=== PATIENT | female | born 1955 | race Caucasian/White ===

== ENCOUNTER 2020-01-02 14:00 | Outpatient (RCR) | payer OTHER, SELFPAY ==
--- NOTE | 2020-01-03 08:09 | MHC.OT.DC ---
[address] [phone] F: [phone] Occupational Therapy Discharge Note Provider: Renetta Ham Diagnosis: R TRIGGER FINGER Date of Evaluation: 11/02/19 Date of Discharge: 01/02/20 Treatments to Date: 14 Discharge Status: Achieved Goals Improved Function Independent with HEP Recommend MD Follow-up Discharge Summary: RECOMMEND TRANSITION TO A HOME BASED PROGRAM AT THIS TIME. MS. BUNDY CONT TO REPORT NO PAIN AND DEMO GOOD FOLLOW THROUGH WITH HEP. NO FURTHER LOCKING OF RIGHT D3, YET CONT TO HAVE TIGHT INTRINSIC MS. Pt HAS REACHED MAXIMUM FUNCTIONAL LEVEL IN OUTPATIENT OT AND RECOMMEND ONGOING THER EX, STRETCHING, MASSAGING, KINESIOTAPING, AND USE OF HEAT/ICE. MAY NEED TO BE REFERRED BACK TO MD FOR F/U. Electronically Signed By: Paula RUFFED, OTR/L Please Sign and return to therapist, thank you for your referral.
== END 2020-01-03 08:25 | disposition home or self-care (01) ==
LOC: HO.OT 14:00
PROVIDERS: PCP Hospitalist; Visit Provider Hospitalist
DX: M65.30 Trigger finger, unspecified finger (principal)
CPT/HCPCS: 97035; 97110; 97140

== ENCOUNTER 2020-01-30 13:07 | Outpatient (REF) | payer OTHER, SELFPAY ==
[2020-02-01 20:16] LABS: HPV mRNA E6/E7 rflx Not Detected (Not Detected)
== END 2020-01-30 13:08 | disposition home or self-care (01) ==
LOC: HO.LAB 13:07
PROVIDERS: Visit Provider Advanced Practice Midwife
DX: Z01.419 Encounter for gynecological examination (general) (routine) without abnormal findings (principal); Z11.51 Encounter for screening for human papillomavirus (HPV); Z78.0 Asymptomatic menopausal state
CPT/HCPCS: 87480; 87510; 87624; 87625; 87660; 88142

== ENCOUNTER → 2021-01-31 13:19 | Outpatient (BNVA) | payer OTHER, SELFPAY | PROVIDERS: Visit Provider Advanced Practice Midwife ==

== ENCOUNTER 2021-03-04 14:18 | Outpatient (REF) | payer OTHER, SELFPAY ==
--- NOTE | ~2021-03-04 | MM_ITS ---
EXAMINATION: MM SCREENING DIGITAL BREAST TOMOSYNTHESIS, BILATERAL CLINICAL INFORMATION: Screening. Asymptomatic. The lifetime risk of breast cancer based on the Tyrer-Cuzick Model is 9%. COMPARISON: Mammography: 11/13/2019, 03/20/2019; outside mammography 07/19/2018 and 11/13/2016 ([place]). TECHNIQUE: Digital breast tomosynthesis is performed in both the craniocaudal and mediolateral oblique views along with computer-aided detection (CAD). Synthesized 2D images are generated from the tomosynthesis. FINDINGS: There are scattered areas of fibroglandular density (ACR BI-RADS breast composition Category b). There are no significant masses, abnormal calcifications, or other abnormalities. Parenchymal pattern is similar to prior studies. There is no developing density or architectural abnormality. The axilla and skin contours are unremarkable. No significant changes. MM/MM tomosynthesis screening BI IMPRESSION: No mammographic evidence of malignancy. ASSESSMENT: BI-RADS 1: Negative RECOMMENDATION: Routine annual mammography screening. This patient's information was entered into a reminder system with a target due date for their next mammogram.
== END 2021-03-04 14:19 | disposition home or self-care (01) ==
LOC: HO.MAMMO 14:18
PROVIDERS: PCP Hospitalist; Visit Provider Advanced Practice Midwife
DX: Z12.31 Encounter for screening mammogram for malignant neoplasm of breast (principal)
CPT/HCPCS: 77063; 77067

== ENCOUNTER → 2021-11-18 11:28 | Outpatient (BNVA) | payer OTHER, SELFPAY | PROVIDERS: PCP Hospitalist; Visit Provider Orthopaedic Surgery | DX: M65.341 Trigger finger, right ring finger (principal) | CPT/HCPCS: 99202 ==

== ENCOUNTER 2021-12-04 11:32 | Day surgery (SDC) | payer OTHER, SELFPAY ==
[2021-12-04 14:59] VITALS: BP 159/72; PULSE 75; RESP 20; TEMP 36.7
--- NOTE | 2021-12-04 15:32 | MHC.SHP ---
Pre-Procedural Eval Section A Date of Service: 12/04/21 The patient is an INPATIENT: No Changes since office visit: No Cold of Flu in the past 2 weeks, No New Medical Problems, No Changes in Medication and No Patient answered all questions The History & Physical has been completed within 30 days and I have reviewed it.: Yes Section B Chief Complaint: trigger finger Allergies: Allergies Allergy/AdvReac Type Severity Reaction Status Date / Time rabies vaccine, human Allergy Unknown sick Verified 10/15/21 13:42 diploid cell duck embryo Allergy Unknown makes her Uncoded 04/16/21 12:56 sick Plan I have reviewed the history and physical and performed a pertinent physical examination on my patient. No changes have occurred unless specified.
--- NOTE | 2021-12-04 15:32 | W.PM.OPN ---
Operative Note Operative Note Date of Service: 12/04/21 Narrative: Operative Note Preop diagnosis: 1. Right ring finger Trigger finger Postop diagnosis: 1. right ring finger Trigger finger Procedure: 1. right ring finger A1 eloy release Surgeon: Sujey Arroyo MD Anesthesia: local block using 1% lidocaine with epinephrine Findings: No locking or catching after A1 eloy release EBL: Less than 5 mL Tourniquet time: None Specimens: None Complications: None Disposition: Brought to recovery room in stable condition Plan: Follow-up for 10-14 days for wound check and suture removal Indications: The patient is 66 years old, with a right ring finger trigger finger that has been unresponsive to nonoperative management. The risks and benefits of operative treatment including but not limited to risk of damage to blood vessels, nerves, tendons, infection, persistent pain, persistent symptoms, recurrence or possible need for additional surgery were discussed with the patient and the patient wishes to proceed with surgery. Procedure: Once consent was obtained a local block was performed in the preop area using a combination of 1% lidocaine with epinephrine. The patient was then brought back to the operating suite and placed on the operative table in supine position. A tourniquet was applied to the proximal aspect of the right upper extremity and the limb was prepped and draped in a standard surgical fashion. Once assured that we had a good block, a 1.5 cm oblique incision was made centered over the A1 eloy of the right ring finger finger . The incision was made through the skin to the subcutaneous tissues using a #15 blade. Careful dissection was made down to the level of the A1 eloy using tenotomy scissors, with care being taken to protect the nearby neurovascular structures. A longitudinal incision was made in the A1 eloy 1st using a #15 blade, then using tenotomy scissors under direct visualization. The A1 eloy was noted to be thickened. Following our A1 eloy release, we no longer saw any locking or catching of the digit with flexion and extension. Once satisfied with our A1 eloy release the wound was copiously irrigated with normal saline and hemostasis was obtained with a brief period of local pressure. The skin edges were reapproximated with some 5.0 nylon suture material and a sterile dressing was applied. The patient appears to have tolerated the procedure well and with no complications. All digits were well vascularized at the conclusion of the case.
== END 2021-12-04 15:35 | disposition home or self-care (01) ==
PROVIDERS: PCP Hospitalist; Visit Provider Orthopaedic Surgery
PROC: (CPT 26055; principal; 2021-12-04 15:30)
DX: M65.341 Trigger finger, right ring finger (principal); I10 Essential (primary) hypertension; G47.33 Obstructive sleep apnea (adult) (pediatric); Z99.89 Dependence on other enabling machines and devices; Z88.7 Allergy status to serum and vaccine; Z87.891 Personal history of nicotine dependence
CPT/HCPCS: 26055; J0171

== ENCOUNTER 2021-12-29 14:47 | Outpatient (REF) | payer OTHER, SELFPAY | END 2021-12-29 14:48 | disposition home or self-care (01) | LOC: HO.SH 14:47 | PROVIDERS: Visit Provider Hospitalist | DX: Z01.118 Encounter for examination of ears and hearing with other abnormal findings (principal); H90.42 Sensorineural hearing loss, unilateral, left ear, with unrestricted hearing on the contralateral side | CPT/HCPCS: 92557; 92567 ==

== ENCOUNTER 2022-03-10 13:53 | Outpatient (REF) | payer OTHER, SELFPAY ==
--- NOTE | ~2022-03-10 | MM_ITS ---
EXAMINATION: MM SCREENING DIGITAL BREAST TOMOSYNTHESIS, BILATERAL CLINICAL INFORMATION: Screening. Asymptomatic. The lifetime risk of breast cancer based on the Tyrer-Cuzick Model is 8%. COMPARISON: Mammography: March 04, 2021 and studies dating back to April 25, 2014 TECHNIQUE: Digital breast tomosynthesis is performed in both the craniocaudal and mediolateral oblique views along with computer-aided detection (CAD). Synthesized 2D images are generated from the tomosynthesis. FINDINGS: There are scattered areas of fibroglandular density (ACR BI-RADS breast composition Category b). There are no significant masses, abnormal calcifications, or other abnormalities. MM/MM tomosynthesis screening BI IMPRESSION: No significant changes from prior exam. ASSESSMENT: BI-RADS 1: Negative RECOMMENDATION: Routine annual mammography screening. This patient's information was entered into a reminder system with a target due date for their next mammogram.
== END 2022-03-10 13:54 | disposition home or self-care (01) ==
LOC: HO.MAMMO 13:53
PROVIDERS: Visit Provider Hospitalist
DX: Z12.31 Encounter for screening mammogram for malignant neoplasm of breast (principal)
CPT/HCPCS: 77063; 77067

== ENCOUNTER → 2022-04-02 15:12 | Outpatient (BNVA) | payer OTHER, SELFPAY | PROVIDERS: PCP Hospitalist; Visit Provider Advanced Practice Midwife | DX: Z13.89 Encounter for screening for other disorder (principal) ==

== ENCOUNTER 2022-10-12 14:56 | Outpatient (REF) | payer OTHER, SELFPAY ==
[2022-10-12 15:40] LABS: Hematocrit 44.2 % (37.0-47.0); Hemoglobin 14.5 g/dl (12.0-16.0); Mean Corpuscular HGB Conc 32.8 g/dl (31.0-35.0); Mean Corpuscular Hemoglobin 28.4 pg (27.0-33.0); Mean Corpuscular Volume 86.7 fL (80.0-98.0); Mean Platelet Volume 9.6 fL (9.4-12.3); Platelet Count 290 X10*3/uL (160-400); Red Cell Distribution Width 13.2 % (11.0-16.0); White Blood Count 6.4 X10*3/uL (4.8-10.8)
[2022-10-12 16:59] LABS: Alanine Aminotransferase 42 U/L (0-31); Albumin Level 4.2 g/dL (3.5-5.0); Alkaline Phosphatase 64 U/L (39-117); Anion Gap 15 (12-20); Aspartate Amino Transferase 20 U/L (5-31); Bilirubin Total 0.6 mg/dL (0.0-1.0); Blood Urea Nitrogen 12 mg/dL (9-16); Calcium 9.5 mg/dL (8.4-10.2); Carbon Dioxide 22 mmol/L (22-29); Chloride 104 mmol/L (96-108); Cholesterol 202 mg/dL; Estimated Glomerular Filt Rate > 60; Glucose Fasting 327 mg/dL (60-99); HDL Cholesterol 49 mg/dL; LDL Cholesterol Calculated 126 mg/dl; Potassium 4.2 mmol/L (3.3-5.1); Sodium 137 mmol/L (135-145); Total Protein 7.3 g/dL (6.5-8.0); Triglycerides 139 mg/dL
[2022-10-12 17:03] LABS: Ferritin 191 ng/mL (10-250); TSH reflex Free T4 0.67 uIU/mL (0.32-4.0)
[2022-10-17 13:03] LABS: Vitamin D 25-OH, D2 <4 ng/mL; Vitamin D 25-OH, D3 12 ng/mL; Vitamin D 25-OH, Total 12 ng/mL (30-100)
== END 2022-10-12 14:57 | disposition home or self-care (01) ==
LOC: HO.LAB 14:56
PROVIDERS: PCP Hospitalist; Visit Provider Hospitalist
DX: Z00.00 Encounter for general adult medical examination without abnormal findings (principal); E66.01 Morbid (severe) obesity due to excess calories; L65.9 Nonscarring hair loss, unspecified; I10 Essential (primary) hypertension
CPT/HCPCS: 36415; 80053; 80061; 82306; 82728; 84443; 85027

== ENCOUNTER 2023-03-23 13:54 | Outpatient (REF) | payer MEDICARE, SELFPAY | END 2023-03-23 13:55 | disposition home or self-care (01) | LOC: HO.MAMMO 13:54 | PROVIDERS: PCP Internal Medicine; Visit Provider Internal Medicine | DX: Z12.31 Encounter for screening mammogram for malignant neoplasm of breast (principal) | CPT/HCPCS: 77063; 77067 ==

== ENCOUNTER → 2023-03-23 14:00 | Outpatient (BNV) | payer MEDICARE, SELFPAY | PROVIDERS: PCP Internal Medicine; Visit Provider Radiology Diagnostic Radiology | DX: Z12.31 Encounter for screening mammogram for malignant neoplasm of breast (principal) | CPT/HCPCS: 77063; 77067 ==

== ENCOUNTER 2023-04-07 12:57 | Outpatient (AMB) | payer MEDICARE, SELFPAY ==
--- NOTE | 2023-04-07 13:04 | A.OFFVIS_ITS ---
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 She is doing well with no concerns. Attempting to eat a healthy diet with calcium and vitamin D. Currently not sexually active. Denies any vaginal irritation. Last pap smear; 2019. Last mammogram; 2022. Colonoscopy is not done yet. Denies any family history of breast, ovarian or colon cancer. [facility] Medical History BMI 40.0-44.9, adult SHALONDA on CPAP Hx of obesity Hypertension Surgical History History of surgery on arm S/P trigger finger release Hx of tonsillectomy Family History Family/Other No problems noted. Social History Housing: House Alcohol intake: current Patient Tobacco Use Status: Former Tobacco user e-Cigarette/Vaping Use: Never Used Current occupational status: employed Cognitive needs: No Hearing needs: Yes Vision needs: Yes Female Reproductive History Menstrual Age of Menarche: 16 Total pregnancies: 3 Full term: 1 Number of Living Children: 1 Date of last pap smear: 01/30/20 (neg pap and hpv) Date of Mammogram: 03/23/23 Review of Systems Const All systems reviewed & are unremarkable except as noted in HPI and below Reports as per HPI Eyes Reports no additional complaints ENT Reports no additional complaints Card Reports no additional complaints Resp Reports no additional complaints GI Reports as per HPI and Reports no additional complaints Reports as per HPI Musc Reports no additional complaints Skin/Breast Reports as per HPI Neuro Reports no additional complaints Psych Reports no additional complaints Endo Reports no additional complaints Pratik/Lymph Reports no additional complaints Aller/Immun Reports no additional complaints Physical Exam Vital Signs: BMI result Body Mass Index 39.0 Const General: cooperative, healthy appearing, no acute distress, well developed and alert Orientation/consciousness: patient oriented x3 HEENT Head: Yes normal to inspection Eyes General: appearance normal, both eyes and all related structures Neck Neck: Yes normal visual inspection Thyroid: Thyroid normal Chest Chest palpation & inspection: normal inspection of the chest and other (no puckering, dimpling, peau de orange, retraction, discharge, masses) Breast/axilla inspection: normal inspection of the breasts Breast/axilla palpation: normal palpation of the breasts Resp Effort & Inspection: normal respiratory effort GI Inspection: Yes normal to inspection Palpation (GI): Soft to palpation Rectal Exam - Female: deferred General: Yes bladder normal to palpation External Female Exam: normal external appearance and normal appearance of the urethra Speculum Exam - Vagina: normal appearance of the vagina, normal palpation, normal vaginal discharge and vagina atrophic Speculum Exam - Cervix: normal appearance of the cervix and normal palpation Bimanual exam- vagina & uterus: normal bimanual exam, normal palpation, uterine size normal, bladder normal to palpation, normal palpation and non-tender Bimanual Exam- Adnexa, other: no masses Skin General skin exam: no rashes or lesions noted Rashes: no rashes Neuro General: patient oriented x3 Cognition (Neuro): normal cognition Extrem General: Yes normal to inspection Psych Attitude: cooperative Thought process: Normal thought process present Assessment & Plan Assessment & Plan (1) Well woman exam with routine gynecological exam: Code(s): Z01.419 - Encounter for gynecological examination (general) (routine) without abnormal findings Plan: Discussed: Current recommendations for pap smears per ASCCP guidelines. Breast awareness, periodic self breast exams and yearly mammogram. Maintain a healthy lifestyle, well balanced diet including Calcium 1,200 mg and Vitamin D 600 IU daily, and routine exercise. Contact the office with any postmenopausal bleeding. All of her questions and concerns were addressed to the best of my ability. RTO in 1 year for annual entry level machine operator exam. This note is constructed using voice recognition software. While every effort has been made to ensure accuracy, flask handler errors may have been included. Coding Level of Care Code Est Pt Prev Care >65y(52157) Diagnoses Well woman exam with routine gynecological exam Z01.419
[2023-04-07 13:06] VITALS: BP 124/76; BMI 39.0
== END 2023-04-07 13:57 | disposition home or self-care (01) ==
LOC: HO.HWS 12:57
PROVIDERS: PCP Internal Medicine; Visit Provider Advanced Practice Midwife
DX: Z01.419 Encounter for gynecological examination (general) (routine) without abnormal findings (principal)
CPT/HCPCS: G0101

== ENCOUNTER → 2023-04-07 12:57 | Outpatient (BNVA) | payer MEDICARE, SELFPAY | PROVIDERS: PCP Internal Medicine; Visit Provider Advanced Practice Midwife | DX: Z01.419 Encounter for gynecological examination (general) (routine) without abnormal findings (principal) | CPT/HCPCS: G0101 ==

== ENCOUNTER 2023-06-22 16:37 | Outpatient (AMB) | payer MEDICARE, SELFPAY ==
[2023-06-22 16:56] VITALS: BP 152/90; BMI 40.2
--- NOTE | 2023-06-22 16:56 | A.OFFPC_ITS ---
Vital Signs 06/22/23 16:56 Height 5 ft 7 in Weight 257 lb BMI 40.2 BP 152/90 H Blood Pressure Location Lt brachial Position Sitting Intake Visit Reasons: Transfer of care Intake Note: Transfer of care from Renetta Ham Housekeeping Aide Required: No Accompanied by: Self / Same As Patient Allergies rabies vaccine, human diploid cell Allergy (Unknown, Verified 06/22/23 17:02) sick duck embryo Allergy (Unknown, Uncoded 06/22/23 17:02) makes her sick Medication List - Last Reconciled 06/22/23 by Niharika Serrano MD alprazolam 0.25 mg PO DAILY PRN metformin 500 mg PO BID 90 days minoxidil 5 mg PO DAILY valsartan-hydrochlorothiazide 160-12.5 mg 1 tab PO DAILY 90 days Tobacco use date assessed: 06/22/23 Fall risk assessment: No Falls in past year Last assessed Fall Risk: 06/22/23 Dental Screening Dental Screen Date: 06/22/23 Did you have a dental visit in the last 12 months?: Yes Did you have a dental problem in the last 6 months where you did not have access to dental care?: No Was dental information given to patient?: Patient has dentist HPI HPI Comments History of Present Illness Details This is a 67-year-old female with morbid obesity, hypertension, obstructive sleep apnea on CPAP and new onset diabetes mellitus type 2 that comes today to establish care. She is morbidly obese with a BMI of 40.3 and was advised to consider weight management. Blood pressure elevated today and will be recheck in 3 weeks by nurse navigator. She has obstructive sleep apnea and is compliant with her CPAP machine and her CPAP machine benefits her feeling more rested. Last random blood glucose was 327 and her A1c today is 8% and I will start home metformin. Patient was advised that metformin can cause abdominal discomfort and diarrhea. Last cholesterol was elevated and she will repeat it. She has no risk factors for colon cancer and is willing to do Cologuard. [facility] Medical History (Updated 06/22/23 @ 20:15 by Niharika Serrano MD) BMI 40.0-44.9, adult SHALONDA on CPAP Hx of obesity Hypertension Surgical History History of surgery on arm S/P trigger finger release Hx of tonsillectomy Family History Family/Other No problems noted. Social History Housing: House Alcohol intake: former Patient Tobacco Use Status: Former Tobacco user Tobacco use type: Cigarette e-Cigarette/Vaping Use: Never Used Second Hand Smoke Exposure: No service: No Current occupational status: employed Current occupational exposures/hazards: No Cognitive needs: No Hearing needs: Yes Vision needs: Yes Female Reproductive History Menstrual Age of Menarche: 16 Questionnaire PHQ-9 Over the last 2 weeks, how often have you been bothered by any of the following problems? 1. Little interest or pleasure in doing things: not at all 2. Feeling down, depressed, or hopeless: not at all 3. Trouble falling or staying asleep, or sleeping too much: not at all 4. Feeling tired or having little energy: not at all 5. Poor appetite or overeating: not at all 6. Feeling bad about yourself - or that you are a failure or have let yourself or your family down: not at all 7. Trouble concentrating on things, such as reading the newspaper or watching television: not at all 8. Moving or speaking so slowly that other people could have noticed. Or the opposite - being so fidgety or restless that you have been moving around a lot more than usual: not at all 9. Thoughts that you would be better off or of hurting yourself in some way: not at all Total score: 0 Depression Screening Interpretation: Negative Depression Screening Done: Yes 39537 - PHQ-9 Billing: Yes Source: Developed by Drs. Jimmy Mendieta, Mackenzie Root, Alex Ford and colleagues, with an educational jerzy from [employer]. Thrive Questionnaire Date Thrive assessed: 06/22/23 I am a: Patient What is your living situation today?: I have a steady place to live Within the past 12 months, did the food you bought not last and you didn't have the money to get more?: Never true Within the past 12 months, did you worry whether your food would run out before you got money to buy more?: Never true Do you have trouble paying for medicines?: No Do you have trouble getting transportation to medical appointments?: No Do you have trouble paying your heating and electricity bill?: No Do you have trouble taking care of your child, family member or friend?: No Do you have trouble with day-to-day activities such as bathing, preparing meals, shopping, managing finances, etc.?: No Are you currently unemployed and looking for a job?: No Are you interested in more education?: No Please select the resources that you would like help with: None Currently or been in a relationship where the following occur: no concerns reported THRIVE Score: 0 AUDIT C Alcohol Use Questionnaire (AUDIT-C) 1. How often do you have a drink containing alcohol?: Never Total Score: 0 NORRIS-7 AMB Questionnaire NORRIS-7 Date NORRIS - 7 assessed: 06/22/23 Feeling nervous, anxious, or on edge: 0 = Not at all Not being able to stop or control worryin = Not at all Worrying too much about different things: 0 = Not at all Trouble relaxin = Not at all Being so restless that it is hard to sit still: 0 = Not at all Becoming easily annoyed or irritable: 0 = Not at all Feeling afraid as if something awful might happen: 0 = Not at all Total NORRIS-7 score (0-4 normal; 5-9 mild; 10-14 moderate; 15-21 severe): 0 Source: Developed by Drs. Jimmy Mendieta, Mackenzie Root, Alex Ford and colleagues, with an educational jerzy from [employer]. NORRIS-7 Assessment Billing NORRIS-7 Assessment Tool: NORRIS-7 Assessment 27116 Review of Systems Const All systems reviewed & are unremarkable except as noted in HPI and below Eyes Reports no additional complaints, Denies change in vision and Denies other visual disturbances Card Denies chest pain at rest, Denies chest pain with activity, Denies edema, Denies irregular heart rhythm, Denies claudication, Denies dyspnea, Denies dyspnea on exertion, Denies orthopnea, Denies paroxysmal nocturnal dyspnea and Denies slow heart rate Resp Denies cough, Denies dyspnea and Denies dyspnea on exertion GI Denies abdominal pain, Denies change in bowel habits, Denies excessive flatus, Denies nausea and Denies vomiting Denies urinary incontinence, Denies urinary hesitancy and Denies urinary urgency Physical exam (Primary Care) Vital Signs: Last Vital Signs BP 152/90 H 06/22/23 16:56 BMI result Body Mass Index 40.2 Tobacco/Smoking Status: Tobacco use Status Tobacco use date assessed 06/22/23 06/22/23 17:00 Patient Tobacco Use Status Former Tobacco user 06/22/23 17:00 Tobacco use type Cigarette 06/22/23 17:00 e-Cigarette/Vaping Use Never Used 06/22/23 17:00 PHQ-9: PHQ-9 Score PHQ-9: Total score 0 06/22/23 17:40 Depression Screening Interpretation: Negative Thrive Assessment: Date of Thrive Assessment Date Thrive assessed 06/22/23 06/22/23 17:00 Currently or been in a relationship where the following occur: no concerns reported Resp Effort & Inspection: normal respiratory effort Auscultation: clear to auscultation bilaterally Cardio Jugular venous distension: no JVD Rate: regular rate Rhythm: regular rhythm Heart sounds: S1 normal heart sound present and S2 normal heart sound present Extrem General: Yes full ROM Results AMB Hemoglobin A1c AMB Hemoglobin A1c 8.0 % Last Edit by ROSALES Berman on 06/22/23 17:4 0 Results Reviewed Results Reviewed: Laboratory Last Values Hgb A1c (Clinic) 8.0 % (4.0-6.0) H 06/22/23 17:39 Assessment and Plan Assessment & Plan (1) Morbid obesity: Code(s): E66.01 - Morbid (severe) obesity due to excess calories Plan: Consider weight loss surgery. BMI goal is less than 30. (2) Diabetes mellitus: Code(s): E11.9 - Type 2 diabetes mellitus without complications Plan: Start metformin. Measure fasting blood glucose daily. A1c goal is equal or less than 7%. (3) SHALONDA on CPAP: Code(s): G47.33 - Obstructive sleep apnea (adult) (pediatric); Z99.89 - Dependence on other enabling machines and devices Plan: Continue CPAP machine. (4) Hypertension: Code(s): I10 - Essential (primary) hypertension Qualifiers: Hypertension type: essential hypertension Qualified Code(s): I10 - Essential (primary) hypertension Plan: Continue valsartan-hydrochlorothiazide. Blood pressure goal is equal or less than 130/80. Recheck blood pressure with nurse navigator in 3 weeks. Orders: Orders Lipid Panel Today E11.9 - Type 2 diabetes mellitus without complications, E78.5 - Hyperlipidemia, unspecified Comprehensive [place]. Panel Fast Today E11.9 - Type 2 diabetes mellitus without complications Thyroid Stimulating Hormone Today L65.9 - Nonscarring hair loss, unspecified AMB Hemoglobin A1c Today E11.9 - Type 2 diabetes mellitus without complications Microalbumin, Random (w Creat) Today E11.9 - Type 2 diabetes mellitus without complications Medications: New blood sugar diagnostic (OneTouch Ultra Test strips) Use 1 test strip once a day 100 ea 3RF E11.9 - Type 2 diabetes mellitus without complications lancets ([employer] InternationalTouch UltraSoft 2 Lancet) Use 1 lancet once a day 100 ea 3RF E11.9 - Type 2 diabetes mellitus without complications CPAP As directed 1 ea 0RF G47.33 - Obstructive sleep apnea (adult) (pediatric), Z99.89 - Dependence on other enabling machines and devices metformin 500 mg PO BID 180 tabs 0RF 90 days E11.9 - Type 2 diabetes mellitus without complications blood-glucose meter (OneTouch Ultra2 Meter) As directed 1 ea 0RF E11.9 - Type 2 diabetes mellitus without complications Coding Level of Care Code Est Pt Level 4 (02920) Diagnoses Morbid obesity E66.01 Diabetes mellitus E11.9 SHALONDA on CPAP G47.33; Z99.89 Essential hypertension I10 Hypertension type: essential hypertension Additional Codes NORRIS-7 Assessment Billing - NORRIS-7 Assessment Tool: NORRIS-7 Assessment 95173 ([id number]) Time Spent (min) 26
== END 2023-06-22 17:32 | disposition home or self-care (01) ==
PROVIDERS: PCP Internal Medicine; Visit Provider Internal Medicine
DX: E11.9 Type 2 diabetes mellitus without complications (principal); E66.01 Morbid (severe) obesity due to excess calories; Z68.41 Body mass index [BMI] 40.0-44.9, adult; G47.33 Obstructive sleep apnea (adult) (pediatric); Z99.89 Dependence on other enabling machines and devices; I10 Essential (primary) hypertension
CPT/HCPCS: 83036; 99214

== ENCOUNTER → 2023-07-19 14:50 | Outpatient (REF) | payer MEDICARE, SELFPAY | LOC: HO.SL 14:50 | PROVIDERS: PCP Internal Medicine; Visit Provider Internal Medicine | DX: G47.33 Obstructive sleep apnea (adult) (pediatric) (principal); Z99.89 Dependence on other enabling machines and devices | CPT/HCPCS: 95806 ==

== ENCOUNTER → 2023-07-19 15:08 | Outpatient (BNV) | payer MEDICARE, SELFPAY | PROVIDERS: PCP Internal Medicine; Visit Provider Internal Medicine | DX: G47.33 Obstructive sleep apnea (adult) (pediatric) (principal) | CPT/HCPCS: 95806 ==

== ENCOUNTER 2023-07-21 11:26 | Outpatient (AMB) | payer MEDICARE, SELFPAY ==
[2023-07-21 11:44] VITALS: BMI 39.2
--- NOTE | 2023-07-21 11:44 | A.OFFVIS_ITS ---
VS Expanded 07/21/23 11:44 07/28/23 10:27 Height 5 ft 7 in 5 ft 7 in Weight 250 lb 7.122 oz 250 lb BMI 39.2 39.2 Intake Visit Reasons: T2DM, Obesity/ CONFIRMED Allergies rabies vaccine, human diploid cell Allergy (Unknown, Verified 06/22/23 17:02) sick duck embryo Allergy (Unknown, Uncoded 06/22/23 17:02) makes her sick Nutrition Presentation Details: Pt presents for MNT for newly dx t2dm with obesity. Pt was referred by PCP Dr. Martin MOFFETT Monitoring Most Recent Diabetes Results: Cholesterol 202 mg/dL 10/12/22 HDL Cholesterol 49 mg/dL 10/12/22 Triglycerides 139 mg/dL 10/12/22 Creatinine 0.77 mg/dL (0.5-1.4) 10/12/22 Blood Urea Nitrogen 12 mg/dL (9-16) 10/12/22 Sodium 137 mmol/L (135-145) 10/12/22 Potassium 4.2 mmol/L (3.3-5.1) 10/12/22 Chloride 104 mmol/L (96-108) 10/12/22 Carbon Dioxide 22 mmol/L (22-29) 10/12/22 Calcium 9.5 mg/dL (8.4-10.2) 10/12/22 AST 20 U/L (5-31) 10/12/22 ALT 42 U/L (0-31) H 10/12/22 Total Protein 7.3 g/dL (6.5-8.0) 10/12/22 Albumin 4.2 g/dL (3.5-5.0) 10/12/22 YRK-Bcbegsm-Co.Jeor Equation Height: 5 ft 7 in Weight: 250 lb Resting Metabolic Rate: 1715.67 Calculated Activity Level: Sedentary Calories Needed to Maintain Weight: 2058.80 Diagnosis Nutrition problem #1: food nutri know defi As related to (etiology) #1: diagnosis As evidenced by (sign/symptom) #1: knowledge deficit of diet Monitoring/Goals Nutrition problem monitoring: level of knowledge/skill Nutrition goal/outcome: list 3 CHO foods and list 3 high fiber foods Outcome progress: verbalized understanding Learning/Education Readiness to learn: good [facility] Medical History (Updated 06/22/23 @ 20:15 by Niharika Serrano MD) BMI 40.0-44.9, adult SHALONDA on CPAP Hx of obesity Hypertension Surgical History History of surgery on arm S/P trigger finger release Hx of tonsillectomy Family History Family/Other No problems noted. Social History Housing: House Alcohol intake: former Patient Tobacco Use Status: Former Tobacco user Tobacco use type: Cigarette e-Cigarette/Vaping Use: Never Used Second Hand Smoke Exposure: No service: No Current occupational status: employed Current occupational exposures/hazards: No Cognitive needs: No Hearing needs: Yes Vision needs: Yes Female Reproductive History Menstrual Age of Menarche: 16 Assessment & Plan Assessment & Plan (1) Diabetes mellitus: Code(s): E11.9 - Type 2 diabetes mellitus without complications Category: Medical Plan: Wt: 114 Kg ( 07/2023 ) Est kcal needs as per MSJ: 2100 (40% carb, 30% protein/fat) Est fluid needs as per 25-30 ml/d: 3400 Est prot per day as per 1 g/kg bw: 114 Recommend fiber intake : 8-10 g per day and gradually increase to 25-28 g per day for women and 35-38 g for men or as tolerated Recommend sodium intake per day : less than 2000 mg Educated patient on: ( R = reviewed V = verbalizes understanding N/R = needs review N/A = not applicable * Food sources of carbohydrate, adequate serving sizes and its role in various health conditions: R * Differences between complex carbohydrates a simple carbohydrates, role of fiber in diet: R V N/R * Lean protein sources of foods: R * Differences between types of fats and role in diet (mono on saturated fat fatty acids, saturated fatty acids, trans fats): R V N/R * Food sources of sodium in salt and healthy modifications for heart health in kidney health: R V R/V * Vitamins and minerals: R V N/R * Healthy plate method concept: R * Physical activity: Benefits a precaution: R V N/R * Hypoglycemia protocol (rule of 15): R V N/R * Dietary prevention of Hyperglycemia: R Patient Instructions: Work on reducing total carb to less than 60 g at meal following healthy plate method see meal plan ideas monitor your blood sugar fasting and 2 hours after a meal, bring to your next follow up for review Coding Level of Care Code Nutr Indiv Intake (19690) Diagnoses Diabetes mellitus E11.9 Time Spent (min) 30
[2023-07-28 10:27] VITALS: BMI 39.2
== END 2023-07-21 12:21 | disposition home or self-care (01) ==
PROVIDERS: PCP Internal Medicine; Visit Provider Dietitian, Registered
DX: E11.9 Type 2 diabetes mellitus without complications (principal)

== ENCOUNTER → 2023-07-21 11:26 | Outpatient (BNVA) | payer MEDICARE, SELFPAY | PROVIDERS: PCP Internal Medicine; Visit Provider Dietitian, Registered | DX: E11.9 Type 2 diabetes mellitus without complications (principal) | CPT/HCPCS: 97802 ==

== ENCOUNTER 2023-08-25 11:24 | Outpatient (AMB) | payer MEDICARE, SELFPAY ==
[2023-08-25 11:38] VITALS: BMI 38.4
--- NOTE | 2023-08-25 11:38 | A.OFFVIS_ITS ---
VS Expanded 08/25/23 11:38 Height 5 ft 7 in Weight 245 lb 2.464 oz BMI 38.4 Intake Visit Reasons: T2DM, Obesity Allergies rabies vaccine, human diploid cell Allergy (Unknown, Verified 06/22/23 17:02) sick duck embryo Allergy (Unknown, Uncoded 06/22/23 17:02) makes her sick Nutrition Presentation Details: Pt presents for MNT f/u for T2DM Pt reports doing well, working on meal planning. Feeling comfortable Reports fbg ranging from 90 - 125 BS Monitoring Most Recent Diabetes Results: No Data to Display [facility] Medical History (Updated 06/22/23 @ 20:15 by Niharika Serrano MD) BMI 40.0-44.9, adult SHALONDA on CPAP Hx of obesity Hypertension Surgical History History of surgery on arm S/P trigger finger release Hx of tonsillectomy Family History Family/Other No problems noted. Social History Housing: House Alcohol intake: former Patient Tobacco Use Status: Former Tobacco user Tobacco use type: Cigarette e-Cigarette/Vaping Use: Never Used Second Hand Smoke Exposure: No service: No Current occupational status: employed Current occupational exposures/hazards: No Cognitive needs: No Hearing needs: Yes Vision needs: Yes Female Reproductive History Menstrual Age of Menarche: 16 Assessment & Plan Assessment & Plan (1) Diabetes mellitus: Code(s): E11.9 - Type 2 diabetes mellitus without complications Category: Medical Plan: Wt: 114 Kg ( 07/2023 ), 111kg(08/2023) Est kcal needs as per MSJ: 2100 (40% carb, 30% protein/fat) Est fluid needs as per 25-30 ml/d: 3400 Est prot per day as per 1 g/kg bw: 114 Recommend fiber intake : 8-10 g per day and gradually increase to 25-28 g per day for women and 35-38 g for men or as tolerated Recommend sodium intake per day : less than 2000 mg Educated patient on: ( R = reviewed V = verbalizes understanding N/R = needs review N/A = not applicable * Food sources of carbohydrate, adequate serving sizes and its role in various health conditions: R * Differences between complex carbohydrates a simple carbohydrates, role of fiber in diet: R V N/R * Lean protein sources of foods: R * Differences between types of fats and role in diet (mono on saturated fat fatty acids, saturated fatty acids, trans fats): R * Food sources of sodium in salt and healthy modifications for heart health in kidney health: R * Vitamins and minerals: R V N/R * Healthy plate method concept: R * Physical activity: Benefits a precaution: R V N/R * Hypoglycemia protocol (rule of 15): R V N/R * Dietary prevention of Hyperglycemia: R Patient Instructions: Continue working on following healthy plate method, reducing on sugars Have a yogurt as bedtime snack monitor your blood sugar 2 hours after a meal for self asessment Coding Level of Care Code Nutr Indiv Subseq (03775) Diagnoses Diabetes mellitus E11.9 Time Spent (min) 20
== END 2023-08-25 12:09 | disposition home or self-care (01) ==
PROVIDERS: PCP Internal Medicine; Visit Provider Dietitian, Registered
DX: E11.9 Type 2 diabetes mellitus without complications (principal)

== ENCOUNTER → 2023-08-25 11:24 | Outpatient (BNVA) | payer MEDICARE, SELFPAY | PROVIDERS: PCP Internal Medicine; Visit Provider Dietitian, Registered | DX: E11.9 Type 2 diabetes mellitus without complications (principal) | CPT/HCPCS: 97803 ==

== ENCOUNTER 2023-11-01 16:31 | Outpatient (AMB) | payer MEDICARE, SELFPAY ==
[2023-11-01 16:43] VITALS: BP 146/74; BMI 37.7
--- NOTE | 2023-11-01 16:43 | AM.OFFVISMDC ---
Intake Vital Signs 11/01/23 16:43 Height 5 ft 7 in Weight 241 lb BMI 37.7 BP 146/74 H Blood Pressure Location Lt brachial Position Sitting Intake Visit Reasons: AWV Paper Pattern Folder Required: No Allergies rabies vaccine, human diploid cell Allergy (Unknown, Verified 11/01/23 16:53) sick duck embryo Allergy (Unknown, Uncoded 11/01/23 16:53) makes her sick Medication List - Last Reconciled 11/01/23 by Niharika Serrano MD alprazolam 0.25 mg PO DAILY PRN blood sugar diagnostic (OneTouch Ultra Test strips) Use 1 test strip once a day blood sugar diagnostic (FreeStyle Lite Strips) Use 1 test strip once a day blood-glucose meter (OneTouch Ultra2 Meter) As directed blood-glucose meter (FreeStyle Lite Meter kit) As directed CPAP As directed lancets (OneTouch UltraSoft 2 Lancet) Use 1 lancet once a day lancets (FreeStyle Lancets) Use 1 lancet once a day metformin 500 mg PO BID 90 days minoxidil 5 mg PO DAILY valsartan-hydrochlorothiazide 160-12.5 mg 1 tab PO DAILY 90 days HPI HPI Comments History of Present Illness Details This is a 67-year-old female with diabetes mellitus type 2 that comes for her Medicare wellness exam. Mammogram done March 2023 and was normal. Has not had a colonoscopy yet due to transportation issues and will be referred to Gastroenterology for this matter. Had fit test in the past that were negative. A1c within goal. Eye exam was this year but was before she knew that she had diabetes. Last Pap smear was 2019 and she follows with OBGYN yearly. Ppp handed to patient. She does have a healthcare proxy. [place] of care was reviewed and updated. [facility] Medical History (Updated 11/01/23 @ 20:01 by Niharika Serrano MD) Morbid obesity BMI 40.0-44.9, adult SHALONDA on CPAP Hx of obesity Hypertension Surgical History History of surgery on arm S/P trigger finger release Hx of tonsillectomy Family History Family/Other No problems noted. Mother Lung cancer, Onset Age: 63 Social History Housing: House Alcohol intake: former Patient Tobacco Use Status: Former Tobacco user Tobacco use type: Cigarette e-Cigarette/Vaping Use: Never Used Second Hand Smoke Exposure: No service: No Current occupational status: employed Current occupational exposures/hazards: No Cognitive needs: No Hearing needs: Yes Vision needs: Yes Female Reproductive History Menstrual Age of Menarche: 16 Questionnaire Medicare Wellness Checkup What [age] What gender do you identify with?: female During the past 4 weeks, how much have you been bothered by emotional problems such as feeling anxious, depressed, irritable, sad or downhearted, and blue?: slightly During the past 4 weeks, has your physical & emotional health limited your social activities with family, friends, neighbors, or groups?: not at all During the past 4 weeks, how much bodily pain have you generally had?: very mild pain During the past 4 weeks, was someone available to help you if you needed & wanted help?: yes, as much as I wanted During the past 4 weeks, what was the hardest physical activity you could do for at least 2 minutes?: moderate Can you get to places out of walking distance without help? (For eg., can you travel alone on buses, taxis or drive your car?): Yes Can you go shopping for groceries or clothes without someone's help?: Yes Can you prepare your own meals?: Yes Can you do your housework without help?: Yes Because of any health problems, do you need the help of another person with your personal care needs such as eating, bathing, dressing or getting around the house?: No Can you handle your own money without help?: Yes During the past 4 weeks, how would you rate your health in general?: very good During the past 4 weeks how have things been going for you?: pretty well Are you having difficulties driving your car?: no Do you always fasten your seat belt when you are in a car?: yes, usually During past 4 weeks, have you been bothered by the following: never: Falling or dizzy when standing up, Sexual problems?, Trouble eating well?, Teeth or denture problems?, Problems using the telephone? and Tiredness or fatigue? Have you fallen 2 or more times in the past year?: No Are you afraid of falling?: No Are you a smoker?: no During the past 4 weeks, how many drinks of wine, beer, or other alcoholic beverages did you have?: no alcohol at all Do you exercise for about 20 minutes 3 or more times a week?: no, I usually do not exercise this much Have you been given information to help with the following?: no: Hazards in your house that might hurt you? and no: Keeping track of your medications? How often do you have trouble taking medicines the way you have been told to take them?: I always take medicine as prescribed How confident are you that you can control & manage most of your health problems?: very confident What is your race?: White Mini Mental State Exam (MMSE) Orientation What is the (year) (season) (date) (day) (month)?: year, season, date, day and month Where are we (state) (county) (town or city) (hospital) (floor)?: state, county, town or city, hospital/clinic and floor Registration Name of 3 unrelated objects clearly and slowly, then ask patient to repeat all 3 of them. (1st repeat determines score. Make sure they can repeat all three): object 1, object 2 and object 3 Attention & Calculation (CHOOSE ONE) Spell WORLD backwards (DLROW): 5 letters Recall Ask patient to repeat the 3 items from question #3.: object 1, object 2 and object 3 Language Show patient a wristwatch & ask what it is. Repeat for pencil.: watch and pencil Ask the patient to repeat the phrase 'No ifs, ands, or buts' after you.: correct Ask the patient to 'take a piece of paper with their right hand' 'fold paper in half' 'place paper on floor': take paper in right hand, fold paper in half and place paper on floor Print the sentence 'CLOSE YOUR EYES' on a piece. If patient actually closes eyes then score.: followed written direction Give patient a blank piece of paper & ask to write a sentence. Score if it contains a noun & verb.: sentence contains subject and verb Ask patient to copy figure of intersecting pentagons exactly. Score if all 10 angles & 2 intersects are included.: all 10 angles present & 2 are intersected Score Score: 30 Activity of Daily Living Bathing - sponge bath, tub bath or shower: receives no assistance (gets in/out by self, if usual bathing means Dressing - getting clothes from closets & drawers, including inner/outer garments & fasteners.: gets clothes & gets completely dressed without help Toileting - going to the 'toilet room' for urine/bowel elimination & cleaning self/arranging clothes: goes to toilet room, cleans self, arranges clothes without help Transfer: moves in & out of bed and chair without help (may use support object) Continence: controls urination/bowel movements completely by self Feeding: feeds self without help Total Score: 0 Information obtained from: patient Using telephone: independent Traveling: independent Shopping: independent Preparing meals: independent Housework: independent Taking medicine: independent Managing money: independent PHQ-9 Over the last 2 weeks, how often have you been bothered by any of the following problems? 1. Little interest or pleasure in doing things: not at all 2. Feeling down, depressed, or hopeless: not at all 3. Trouble falling or staying asleep, or sleeping too much: not at all 4. Feeling tired or having little energy: not at all 5. Poor appetite or overeating: not at all 6. Feeling bad about yourself - or that you are a failure or have let yourself or your family down: not at all 7. Trouble concentrating on things, such as reading the newspaper or watching television: not at all 8. Moving or speaking so slowly that other people could have noticed. Or the opposite - being so fidgety or restless that you have been moving around a lot more than usual: not at all 9. Thoughts that you would be better off or of hurting yourself in some way: not at all Total score: 0 Depression Screening Interpretation: Negative Depression Screening Done: Yes 79489 - PHQ-9 Billing: Yes Source: Developed by Drs. Jimmy Mendieta, Mackenzie Root, Alex Ford and colleagues, with an educational jerzy from [employer]. AUDIT C Alcohol Use Questionnaire (AUDIT-C) 1. How often do you have a drink containing alcohol?: Never Total Score: 0 Score Reviewed/Action Taken: No Thrive Questionnaire Date Thrive assessed: 11/01/23 I am a: Patient What is your living situation today?: I have a steady place to live Within the past 12 months, did the food you bought not last and you didn't have the money to get more?: Never true Within the past 12 months, did you worry whether your food would run out before you got money to buy more?: Never true Do you have trouble paying for medicines?: No Do you have trouble getting transportation to medical appointments?: No Do you have trouble paying your heating and electricity bill?: No Do you have trouble taking care of your child, family member or friend?: No Do you have trouble with day-to-day activities such as bathing, preparing meals, shopping, managing finances, etc.?: No Are you currently unemployed and looking for a job?: No Are you interested in more education?: No Please select the resources that you would like help with: None Currently or been in a relationship where the following occur: No concerns reported THRIVE Score: 0 Fall Risk Assessment Fall Risk Assessment Fall risk assessment: No Falls in past year NORRIS-7 AMB Questionnaire NORRIS-7 Date NORRIS - 7 assessed: 11/01/23 Feeling nervous, anxious, or on edge: 0 = Not at all Not being able to stop or control worryin = Not at all Worrying too much about different things: 0 = Not at all Trouble relaxin = Not at all Being so restless that it is hard to sit still: 0 = Not at all Becoming easily annoyed or irritable: 0 = Not at all Feeling afraid as if something awful might happen: 0 = Not at all Total NORRIS-7 score (0-4 normal; 5-9 mild; 10-14 moderate; 15-21 severe): 0 Source: Developed by Drs. Jimmy Mendieta, Mackenzie Root, Alex Ford and colleagues, with an educational jerzy from [employer]. NORRIS-7 Assessment Billing NORRIS-7 Assessment Tool: NORRIS-7 Assessment 24977 Physical Exam Vital Signs: Last Vital Signs BP 146/74 H 11/01/23 16:43 BMI result Body Mass Index 37.7 Results AMB Hemoglobin A1c AMB Hemoglobin A1c 6.3 % Last Edit by ROSALES Berman on 11/01/23 17:10 Immunizations pneumoc 20-alivia conj-dip cr(PF) 0.5 mL IM syringe Performing Provider: Niharika Serrano MD [facility] Administered by: ROSALES Berman on 11/01/23 17:31 Dose Route Admin Location Dispensed Lot Number Expiration Date NDC Sql Program[employer]st 0.5 mL IM Left Deltoid 0.5 mL [id number] 08/13/24 [employer] VIS Given Date VIS Provided VIS Publication Date 11/01/23 Single Vaccine 21 Eligibility Eligibility Date Funding Source Not VFC Eligible 11/01/23 Private Results Reviewed Results Reviewed: Laboratory Last Values Hgb A1c (Clinic) 6.3 % (4.0-6.0) H 11/01/23 17:08 Assessment & Plan Assessment & Plan (1) Encounter for Medicare annual wellness exam: Code(s): Z00.00 - Encounter for general adult medical examination without abnormal findings Plan: Repeat in a year. (2) Diabetes mellitus: Code(s): E11.9 - Type 2 diabetes mellitus without complications Plan: Continue metformin. A1c goal is equal or less than 7%. Do diabetic eye exam yearly. Orders: Orders AMB Hemoglobin A1c Today E11.9 - Type 2 diabetes mellitus without complications XR DEXA axial skeleton Today N95.9 - Unspecified menopausal and perimenopausal disorder Microalbumin, Random (w Creat) Today E11.9 - Type 2 diabetes mellitus without complications Lipid Panel Today E78.5 - Hyperlipidemia, unspecified Comprehensive [place]. Panel Fast Today E11.9 - Type 2 diabetes mellitus without complications Pneumococcal 20 Immunization Today Z23 - Encounter for immunization Referrals Gastroenterology Referral Z12.11 - Encounter for screening for malignant neoplasm of colon Quality Reporting (2019) Fall Risk Screening (CMS 139) Fall risk assessment: No Falls in past year Depression/Bipolar (159/160/161/177) PHQ-9: Total score: 0 Coding Level of Care Code Medicare First (G0438) Diagnoses Encounter for Medicare annual wellness exam Z00.00 Diabetes mellitus E11.9 CPT Codes Advance Care Planning - Time spent: 1-15 minutes, on File ([id number]) Additional Codes NORRIS-7 Assessment Billing - NORRIS-7 Assessment Tool: NORRIS-7 Assessment 15005 ([id number]) Time Spent (min) 33 Advance Care Planning Advance Care Planning discussion: Exists, not on file Date of discussion: 11/01/23 Who was present: patient and me Forms completed: Health Care Proxy Time spent: 1-15 minutes, on File Actual minutes spent: 1
== END 2023-11-01 17:29 | disposition home or self-care (01) ==
PROVIDERS: PCP Internal Medicine; Visit Provider Internal Medicine
DX: Z00.00 Encounter for general adult medical examination without abnormal findings (principal); E11.9 Type 2 diabetes mellitus without complications; Z23 Encounter for immunization
CPT/HCPCS: 1123F; 83036; 90471; 90677; G0438

== ENCOUNTER 2023-11-03 13:18 | Outpatient (AMB) | payer MEDICARE, SELFPAY ==
[2023-11-03 13:25] VITALS: BMI 38.0
--- NOTE | 2023-11-03 13:25 | A.OFFVIS_ITS ---
VS Expanded 11/03/23 13:25 Height 5 ft 7 in Weight 242 lb 8.136 oz BMI 38.0 Intake Visit Reasons: T2DM, obesity/CONFIRMED Allergies rabies vaccine, human diploid cell Allergy (Unknown, Verified 11/01/23 16:53) sick duck embryo Allergy (Unknown, Uncoded 11/01/23 16:53) makes her sick Nutrition Presentation Details: Pt presents for MNT f/u for T2DM Pt reports working on diet modifications, feeling well, A1c has improved to 6.3% from 8% BS Monitoring Most Recent Diabetes Results: No Data to Display [facility] Medical History (Updated 11/01/23 @ 20:01 by Niharika Serrano MD) Morbid obesity BMI 40.0-44.9, adult SHALONDA on CPAP Hx of obesity Hypertension Surgical History History of surgery on arm S/P trigger finger release Hx of tonsillectomy Family History Family/Other No problems noted. Mother Lung cancer, Onset Age: 63 Social History Housing: House Alcohol intake: former Patient Tobacco Use Status: Former Tobacco user Tobacco use type: Cigarette e-Cigarette/Vaping Use: Never Used Second Hand Smoke Exposure: No service: No Current occupational status: employed Current occupational exposures/hazards: No Cognitive needs: No Hearing needs: Yes Vision needs: Yes Female Reproductive History Menstrual Age of Menarche: 16 Assessment & Plan Assessment & Plan (1) Diabetes mellitus: Code(s): E11.9 - Type 2 diabetes mellitus without complications Category: Medical Plan: Wt: 114 Kg ( 07/2023 ), 111kg(08/2023), 110 kg (10/2023) Est kcal needs as per MSJ: 2100 (40% carb, 30% protein/fat) Est fluid needs as per 25-30 ml/d: 3400 Est prot per day as per 1 g/kg bw: 114 Recommend fiber intake : 8-10 g per day and gradually increase to 25-28 g per day for women and 35-38 g for men or as tolerated Recommend sodium intake per day : less than 2000 mg Educated patient on: ( R = reviewed V = verbalizes understanding N/R = needs review N/A = not applicable * Food sources of carbohydrate, adequate serving sizes and its role in various health conditions: R * Differences between complex carbohydrates a simple carbohydrates, role of fiber in diet: R V * Lean protein sources of foods: R * Differences between types of fats and role in diet (mono on saturated fat fatty acids, saturated fatty acids, trans fats): R * Food sources of sodium in salt and healthy modifications for heart health in kidney health: R * Vitamins and minerals: R * Healthy plate method concept: R * Physical activity: Benefits a precaution: R * Hypoglycemia protocol (rule of 15): R V * Dietary prevention of Hyperglycemia: R Patient Instructions: Continue following healthy plate method Include omega 3 sources of foods Coding Level of Care Code Nutr Indiv Subseq (39561) Diagnoses Diabetes mellitus E11.9 Time Spent (min) 30
== END 2023-11-03 14:03 | disposition home or self-care (01) ==
PROVIDERS: PCP Internal Medicine; Visit Provider Dietitian, Registered
DX: E11.9 Type 2 diabetes mellitus without complications (principal)

== ENCOUNTER → 2023-11-03 13:18 | Outpatient (BNVA) | payer MEDICARE, SELFPAY | PROVIDERS: PCP Internal Medicine; Visit Provider Dietitian, Registered | DX: E11.9 Type 2 diabetes mellitus without complications (principal); E66.9 Obesity, unspecified; Z71.3 Dietary counseling and surveillance; Z68.38 Body mass index [BMI] 38.0-38.9, adult | CPT/HCPCS: 97803 ==

== ENCOUNTER 2023-11-19 13:46 | Outpatient (REF) | payer MEDICARE, SELFPAY ==
--- NOTE | ~2023-11-19 | MM_ITS ---
EXAMINATION: BONE DENSITOMETRY CLINICAL INDICATION: Unspecified menopausal and perimenopausal disorder. COMPARISON: This is the patient's baseline examination. TECHNIQUE: Using a Gusto DXA System (software version: 13.1) manufactured by [employer], dual-energy x-ray absorptiometry was performed of the lumbar spine and left hip. The images are of good technical quality. Summary results are attached. FINDINGS: LEFT FEMUR, NECK: BMD 0.946 g/cm2, Z-score 0.1, T-score -0.7, normal. LEFT FEMUR, TOTAL: BMD 1.044 g/cm2, Z-score 0.7, T-score 0.3, normal. AP SPINE L1-L4: BMD 1.228 g/cm2, Z-score 0.8, T-score 0.4, normal. IDENTIFIED RISK FACTORS: Menopause, history of fracture (adult). HISTORY OF FRACTURE: Other. MEDICATIONS: Multivitamin. MM/XR DEXA axial skeleton IMPRESSION: 1. DIAGNOSIS: Normal bone density based on the lowest T-score value of -0.7 in the femoral neck applying World Health Organization criteria. 2. 10-YEAR FRACTURE RISK PREDICTION, FRAX: According to the guidelines, FRAX calculation should only be performed on patients in the osteopenia bone density category. Therefore, FRAX was not performed on this patient. 3. Treatment Recommendations: NOF guidelines recommend consideration for treatment in postmenopausal women and men age 50 and older presenting with the following: -A hip or vertebral (clinical or morphometric) fracture. -T-score less than or equal to -2.5 at the femoral neck or spine after appropriate evaluation to exclude secondary causes. -Low bone mass at the hip or spine and a 10-year fracture probability by FRAX of greater than or equal to 3% for hip fracture or greater than or equal to 20% for major osteoporotic fracture based on the [place] adapted WHO algorithm. 4. Other Recommendations: All treatment decisions require clinical judgment and consideration of individual patient factors, including patient preferences, comorbidities, previous drug use, risk factors not captured in the FRAX model (e.g. frailty, falls, vitamin D deficiency, increased bone turnover, interval significant decline in bone density) and possible under or overestimation of fracture risk by FRAX. FUTURE SCAN RECOMMENDATION: People with diagnosed cases of osteoporosis or at high risk for fracture should have regular bone mineral density tests. For patients eligible for Medicare, routine testing is allowed once every 2 years. The testing frequency can be increased to one year for patients who have rapidly progressing disease, those who are receiving or discontinuing medical therapy to restore bone mass, or have additional risk factors. Electronically signed by: John Greco MD 11/24/2023 01:14 PM EDT
== END 2023-11-19 13:47 | disposition home or self-care (01) ==
LOC: HO.MAMMO 13:46
PROVIDERS: PCP Internal Medicine; Visit Provider Internal Medicine
DX: Z13.820 Encounter for screening for osteoporosis (principal); Z78.0 Asymptomatic menopausal state
CPT/HCPCS: 77080

== ENCOUNTER 2023-12-31 14:09 | Outpatient (AMB) | payer MEDICARE, SELFPAY ==
--- NOTE | 2023-12-31 14:16 | A.OFFPC_ITS ---
Vital Signs 12/31/23 14:25 Height 5 ft 7 in Weight 244 lb BMI 38.2 BP 132/72 Blood Pressure Location Lt brachial Position Sitting Pulse 74 Pulse Source Pulse Oximeter Pulse Oximetry (%) 99 Intake Visit Reasons: JOE of care from [place]. Intake Note: New patient visit Allergies rabies vaccine, human diploid cell Allergy (Unknown, Verified 12/31/23 14:18) sick duck embryo Allergy (Unknown, Uncoded 12/31/23 14:18) makes her sick Tobacco use date assessed: 06/22/23 Fall risk assessment: No Falls in past year Last assessed Fall Risk: 12/31/23 Dental Screening Dental Screen Date: 06/22/23 HPI HPI Comments History of Present Illness Details This is a 67-year-old female with diabetes mellitus type 2, SHALONDA, HTN, anxiety presenting [facility] for her Medicare wellness exam. Mammogram done March 2023 and was normal. Has not had a colonoscopy yet due to transportation issues, she is newer to the area-she was referred to Gastroenterology for this matter. Plan is to do cologuard and if positive then have a colleague potentially drive her for colonoscopy. Type 2 diabetes: Newer diagnosis. Her morning fingersticks are all in goal. Discussed goal. She has seen nutrition, lost some weight. Would like to see the tobacco prevention health educator. Last A1C 6.5%. Eye exam was this year but was before she knew that she had diabetes. Having ongoing bilateral achilles pain for the past few months. No injury. No abx. She has been doing home stretches Last Pap smear was 2019 and she follows with OBGYN yearly. Mammo Mar 2023 ROS see HPI PHYSICAL EXAM: GENERAL: Alert and oriented x 3. NAD EYES: EOMI. Anicteric. HENT: Moist mucous membranes. No scleral icterus. No cervical lymphadenopathy. LUNGS: Clear to auscultation bilaterally. CARDIOVASCULAR: Regular rate and rhythm. No murmur. No JVD. ABDOMEN: Soft, non-tender +bs EXTREMITIES: No edema. Non-tender. SKIN: No rashes or lesions. Warm. NEUROLOGIC: No focal neurological deficits. CN II-XII grossly intact PSYCHIATRIC: Cooperative. Appropriate mood and affect [facility] Medical History (Updated 12/31/23 @ 14:54 by Naheed Dominguez MD) Morbid obesity BMI 40.0-44.9, adult SHALONDA on CPAP Hx of obesity Hypertension Surgical History History of surgery on arm S/P trigger finger release Hx of tonsillectomy Family History Family/Other No problems noted. Mother Lung cancer, Onset Age: 63 Social History Housing: House Alcohol intake: former Patient Tobacco Use Status: Former Tobacco user Tobacco use type: Cigarette e-Cigarette/Vaping Use: Never Used Second Hand Smoke Exposure: No service: No Current occupational status: employed Current occupation: [employer] Current occupational exposures/hazards: Yes Cognitive needs: No Hearing needs: Yes Vision needs: Yes Female Reproductive History Menstrual Age of Menarche: 16 Questionnaire PHQ-9 Over the last 2 weeks, how often have you been bothered by any of the following problems? 1. Little interest or pleasure in doing things: not at all 2. Feeling down, depressed, or hopeless: not at all 3. Trouble falling or staying asleep, or sleeping too much: not at all 4. Feeling tired or having little energy: not at all 5. Poor appetite or overeating: not at all 6. Feeling bad about yourself - or that you are a failure or have let yourself or your family down: not at all 7. Trouble concentrating on things, such as reading the newspaper or watching television: not at all 8. Moving or speaking so slowly that other people could have noticed. Or the opposite - being so fidgety or restless that you have been moving around a lot more than usual: not at all 9. Thoughts that you would be better off or of hurting yourself in some way: not at all Total score: 0 Depression Screening Interpretation: Negative Depression Screening Done: Yes 31943 - PHQ-9 Billing: Yes Source: Developed by Drs. Jimmy Mendieta, Mackenzie Root, Alex Ford and colleagues, with an educational jerzy from [employer]. Thrive Questionnaire Date Thrive assessed: 12/31/23 I am a: Patient What is your living situation today?: I have a steady place to live Within the past 12 months, did the food you bought not last and you didn't have the money to get more?: Never true Within the past 12 months, did you worry whether your food would run out before you got money to buy more?: Never true Do you have trouble paying for medicines?: No Do you have trouble getting transportation to medical appointments?: No Do you have trouble paying your heating and electricity bill?: No Do you have trouble taking care of your child, family member or friend?: No Do you have trouble with day-to-day activities such as bathing, preparing meals, shopping, managing finances, etc.?: No Are you currently unemployed and looking for a job?: No Are you interested in more education?: Yes Please select the resources that you would like help with: None Currently or been in a relationship where the following occur: No concerns reported THRIVE Score: 0 AUDIT C Alcohol Use Questionnaire (AUDIT-C) 1. How often do you have a drink containing alcohol?: Never 3. How often do you have six or more drinks on one occasion?: Never Total Score: 0 NORRIS-7 AMB Questionnaire NORRIS-7 Date NORRIS - 7 assessed: 11/01/23 Source: Developed by Drs. Jimmy Mendieta, Mackenzie Root, Alex Ford and colleagues, with an educational jerzy from [employer]. Physical exam (Primary Care) Vital Signs: Last Vital Signs Pulse 74 12/31/23 14:25 BP 132/72 12/31/23 14:25 Pulse Ox 99 12/31/23 14:25 BMI result Body Mass Index 38.2 Tobacco/Smoking Status: Tobacco use Status Tobacco use date assessed 06/22/23 12/31/23 14:23 Patient Tobacco Use Status Former Tobacco user 12/31/23 14:23 Tobacco use type Cigarette 12/31/23 14:23 e-Cigarette/Vaping Use Never Used 12/31/23 14:23 PHQ-9: PHQ-9 Score PHQ-9: Total score 0 01/03/24 06:48 Depression Screening Interpretation: Negative Thrive Assessment: Date of Thrive Assessment Date Thrive assessed 12/31/23 12/31/23 14:23 Currently or been in a relationship where the following occur: No concerns reported Coding Level of Care Code Est Pt Level 4 (80202) Diagnoses Achilles tendonitis, bilateral M76.61; M76.62 Screen for colon cancer Z12.11 Essential hypertension I10 Hypertension type: essential hypertension Assessment & Plan Assessment & Plan (1) Achilles tendonitis, bilateral: Code(s): M76.61 - Achilles tendinitis, right leg; M76.62 - Achilles tendinitis, left leg Category: Medical Plan: xrays ordered Voltaren ordered Prednisone burst Referral to orthopedics (2) Screen for colon cancer: Code(s): Z12.11 - Encounter for screening for malignant neoplasm of colon Category: Medical Plan: Cologuard order placed. Discussed sensitvity, specificity etc. (3) Hypertension: Code(s): I10 - Essential (primary) hypertension Category: Medical Qualifiers: Hypertension type: essential hypertension Qualified Code(s): I10 - Essential (primary) hypertension Plan: Controlled on current medications Orders: Orders XR foot LT min 3V 12/31/23 M76.61 - Achilles tendinitis, right leg, M76.62 - Achilles tendinitis, left leg XR foot RT min 3V 12/31/23 M76.61 - Achilles tendinitis, right leg, M76.62 - Achilles tendinitis, left leg Referrals Orthopedics Referral M76.61 - Achilles tendinitis, right leg, M76.62 - Achilles tendinitis, left leg Medications: New diclofenac sodium 1% (Voltaren Arthritis Pain) apply to single knee, ankle, foot; for foot includes sole/toes/top of foot 4 grams topical QID 100 grams 3RF Mounjaro (tirzepatide) for 4 weeks 2.5 mg (0.5 mL) subcut QWEEK 2 mL 0RF NS ondansetron HCl 4 mg PO Q8H PRN 60 tabs 0RF nausea and vomiting prednisone 40 mg (2 x 20 mg) PO DAILY 10 tabs 0RF
[2023-12-31 14:25] VITALS: BP 132/72; PULSE 74; O2SAT 99; BMI 38.2
== END 2023-12-31 15:12 | disposition home or self-care (01) ==
PROVIDERS: PCP Internal Medicine; Visit Provider Internal Medicine
DX: M76.61 Achilles tendinitis, right leg (principal); M76.62 Achilles tendinitis, left leg; Z12.11 Encounter for screening for malignant neoplasm of colon; I10 Essential (primary) hypertension

== ENCOUNTER → 2023-12-31 14:09 | Outpatient (BNVA) | payer MEDICARE, SELFPAY | PROVIDERS: PCP Internal Medicine; Visit Provider Internal Medicine | DX: M76.61 Achilles tendinitis, right leg (principal); M76.62 Achilles tendinitis, left leg; I10 Essential (primary) hypertension | CPT/HCPCS: 99212 ==

== ENCOUNTER 2024-01-20 13:36 | Outpatient (REF) | payer MEDICARE, SELFPAY | END 2024-01-20 13:37 | disposition home or self-care (01) | LOC: HO.XRAY 13:36 | PROVIDERS: PCP Internal Medicine; Visit Provider Internal Medicine | DX: M76.61 Achilles tendinitis, right leg (principal); M76.62 Achilles tendinitis, left leg | CPT/HCPCS: 73630 ==

== ENCOUNTER 2024-03-28 13:45 | Outpatient (REF) | payer MEDICARE, SELFPAY | END 2024-03-28 13:46 | disposition home or self-care (01) | LOC: HO.MAMMO 13:45 | PROVIDERS: PCP Internal Medicine; Visit Provider Internal Medicine | DX: Z12.31 Encounter for screening mammogram for malignant neoplasm of breast (principal) | CPT/HCPCS: 77063; 77067 ==

== ENCOUNTER → 2024-03-28 14:00 | Outpatient (BNV) | payer MEDICARE, SELFPAY | PROVIDERS: PCP Internal Medicine; Visit Provider Internal Medicine | DX: Z12.31 Encounter for screening mammogram for malignant neoplasm of breast (principal) | CPT/HCPCS: 77063; 77067 ==

== ENCOUNTER 2024-04-07 13:36 | Outpatient (AMB) | payer MEDICARE, SELFPAY ==
--- NOTE | 2024-04-07 13:43 | A.OFFPC_ITS ---
Vital Signs 04/07/24 13:46 04/07/24 13:55 Height 5 ft 7 in Weight 242 lb 4 oz BMI 37.9 BP 144/76 H 142/72 H Blood Pressure Location Lt brachial Rt brachial Position Sitting Sitting Pulse 78 Pulse Source Pulse Oximeter Pulse Oximetry (%) 96 Oxygen Delivery Method Room Air Intake Visit Reasons: DM Intake Note: Diabetetes follow. Has appt for GI for positive cologuard Allergies rabies vaccine, human diploid cell Allergy (Unknown, Verified 04/07/24 13:43) sick duck embryo Allergy (Unknown, Uncoded 04/07/24 13:43) makes her sick Tobacco use date assessed: 06/22/23 Dental Screening Dental Screen Date: 06/22/23 HPI HPI Comments History of Present Illness Details This is a 68-year-old female with diabetes mellitus type 2, SHALONDA, HTN, anxiety presenting for follow up Has upcoming appt to discuss colonoscopy given positive cologuard Type 2 diabetes: on metformin 500 bid. Getting a lot of loose frequent stool from the medication. will go down to 500. A1C 5.6 from 6.5 She has seen nutrition, lost some weight.. Eye exam was this year but was before she knew that she had diabetes. Last Pap smear was 2019 and she follows with OBGYN yearly. Mammo Mar 2023 ROS see HPI PHYSICAL EXAM: GENERAL: Alert and oriented x 3. NAD EYES: EOMI. Anicteric. HENT: Moist mucous membranes. No scleral icterus. No cervical lymphadenopathy. LUNGS: Clear to auscultation bilaterally. CARDIOVASCULAR: Regular rate and rhythm. No murmur. No JVD. ABDOMEN: Soft, non-tender +bs EXTREMITIES: No edema. Non-tender. SKIN: No rashes or lesions. Warm. NEUROLOGIC: No focal neurological deficits. CN II-XII grossly intact PSYCHIATRIC: Cooperative. Appropriate mood and affect [facility] Medical History (Updated 04/07/24 @ 14:12 by Naheed Dominguez MD) Morbid obesity BMI 40.0-44.9, adult SHALONDA on CPAP Hx of obesity Hypertension Surgical History History of surgery on arm S/P trigger finger release Hx of tonsillectomy Family History Family/Other No problems noted. Mother Lung cancer, Onset Age: 63 Social History Housing: House Alcohol intake: former Patient Tobacco Use Status: Former Tobacco user Tobacco use type: Cigarette e-Cigarette/Vaping Use: Never Used Second Hand Smoke Exposure: No service: No Current occupational status: employed Current occupation: [employer] Current occupational exposures/hazards: Yes Cognitive needs: No Hearing needs: Yes Vision needs: Yes Female Reproductive History Menstrual Age of Menarche: 16 Questionnaire Thrive Questionnaire Date Thrive assessed: 04/07/24 I am a: Patient What is your living situation today?: I have a steady place to live Within the past 12 months, did the food you bought not last and you didn't have the money to get more?: Never true Within the past 12 months, did you worry whether your food would run out before you got money to buy more?: Never true Do you have trouble paying for medicines?: No Do you have trouble getting transportation to medical appointments?: No Do you have trouble paying your heating and electricity bill?: No Do you have trouble taking care of your child, family member or friend?: No Do you have trouble with day-to-day activities such as bathing, preparing meals, shopping, managing finances, etc.?: No Are you currently unemployed and looking for a job?: No Are you interested in more education?: Yes Please select the resources that you would like help with: None Currently or been in a relationship where the following occur: No concerns reported THRIVE Score: 0 NORRIS-7 AMB Questionnaire NORRIS-7 Date NORRIS - 7 assessed: 11/01/23 Source: Developed by Drs. Jimmy Mendieta, Mackenzie Root, Alex Ford and colleagues, with an educational ejrzy from [employer]. Physical exam (Primary Care) Vital Signs: Last Vital Signs Pulse 78 04/07/24 13:46 BP 142/72 H 04/07/24 13:55 Pulse Ox 96 04/07/24 13:46 Oxygen Delivery Method Room Air 04/07/24 13:46 BMI result Body Mass Index 37.9 Tobacco/Smoking Status: Tobacco use Status Tobacco use date assessed 06/22/23 04/07/24 13:50 Patient Tobacco Use Status Former Tobacco user 04/07/24 13:50 Tobacco use type Cigarette 04/07/24 13:50 e-Cigarette/Vaping Use Never Used 04/07/24 13:50 Thrive Assessment: Date of Thrive Assessment Date Thrive assessed 04/07/24 04/07/24 13:50 Currently or been in a relationship where the following occur: No concerns reported Coding Level of Care Code Est Pt Level 4 (91391) Diagnoses Type 2 diabetes mellitus without complication, without long-term current use of insulin E11.9 Diabetes mellitus type: type 2 Diabetes mellitus assisted insulin use: without assistant terminal manager use Diabetes mellitus complication status: without complication SHALONDA on CPAP G47.33; Z99.89 Assessment & Plan Assessment & Plan (1) Diabetes mellitus: Code(s): E11.9 - Type 2 diabetes mellitus without complications Category: Medical Qualifiers: Diabetes mellitus type: type 2 Diabetes mellitus assisted insulin use: without assistant terminal manager use Diabetes mellitus complication status: without complication Qualified Code(s): E11.9 - Type 2 diabetes mellitus without complications Plan: Decrease metformin to 500mg daily. Discussed consideration of switching to alternate medication Congratulated on ongoing weight loss. (2) SHALONDA on CPAP: Code(s): G47.33 - Obstructive sleep apnea (adult) (pediatric); Z99.89 - Dependence on other enabling machines and devices Category: Medical Plan: continues CPAP Orders: Orders Complete Blood Count Auto Diff Today E11.9 - Type 2 diabetes mellitus without complications, I10 - Essential (primary) hypertension, Z13.220 - Encounter for screening for lipoid disorders Lipid Panel Today E11.9 - Type 2 diabetes mellitus without complications, I10 - Essential (primary) hypertension, Z13.220 - Encounter for screening for lipoid disorders Microalbumin 24 hr Urine Today E11.9 - Type 2 diabetes mellitus without complications, I10 - Essential (primary) hypertension, Z13.220 - Encounter for screening for lipoid disorders Comprehensive Met. Panel Today E11.9 - Type 2 diabetes mellitus without complications, I10 - Essential (primary) hypertension, Z13.220 - Encounter for screening for lipoid disorders Medications: Changed From metformin 500 mg PO BID 90 days 180 tabs 0RF E11.9 - Type 2 diabetes mellitus without complications To metformin 500 mg PO DAILY 90 days 90 tabs 3RF E11.9 - Type 2 diabetes mellitus without complications
[2024-04-07 13:46] VITALS: BP 144/76; PULSE 78; O2SAT 96; BMI 37.9
[2024-04-07 13:55] VITALS: BP 142/72
== END 2024-04-07 14:12 | disposition home or self-care (01) ==
PROVIDERS: PCP Internal Medicine; Visit Provider Internal Medicine
DX: E11.9 Type 2 diabetes mellitus without complications (principal)

== ENCOUNTER → 2024-04-07 13:36 | Outpatient (BNVA) | payer MEDICARE, SELFPAY | PROVIDERS: PCP Internal Medicine; Visit Provider Internal Medicine | DX: E11.9 Type 2 diabetes mellitus without complications (principal); G47.33 Obstructive sleep apnea (adult) (pediatric); Z79.84 Long term (current) use of oral hypoglycemic drugs; Z99.89 Dependence on other enabling machines and devices | CPT/HCPCS: 83036; 99212 ==

== ENCOUNTER 2024-04-10 13:22 | Outpatient (AMB) | payer MEDICARE, SELFPAY ==
--- NOTE | 2024-04-10 13:27 | MHC.OFFVIS ---
Vital Signs 04/10/24 13:35 Height 5 ft 7 in Weight 240 lb BMI 37.6 BP 176/67 H Blood Pressure Location Lt brachial Position Sitting Pulse 82 Intake Visit Reasons: Positive Cologuard Intake Note: Patient new consult for Positive cologuard. Patient denies any GI issues. Opto Mechanical Engineer Required: No Accompanied by: Self / Same As Patient Allergies rabies vaccine, human diploid cell Allergy (Unknown, Verified 04/10/24 13:26) sick duck embryo Allergy (Unknown, Uncoded 04/07/24 13:43) makes her sick HPI Comments Details: 68 year old female presenting to the office for discussion of colon cancer screening. Pt has been doing stool based testing for CRC screening all this time. Most recent cologuard in 02/2024 was POSITIVE and hence was referred here. Patient is at average risk of colon cancer due to no positive family history of colon cancer in first degree relatives. Patient does not have any other gastrointestinal symptoms to include abdominal pain, nausea, vomiting, diarrhea, blood in stool, weight loss. Recent labs not available - pt plans to get these done today. Quit smoking in 1996. Quit drinking in 2020. [facility] Medical History (Updated 04/10/24 @ 14:10 by Ifrah Blair MD) Morbid obesity BMI 40.0-44.9, adult SHALONDA on CPAP Hx of obesity Hypertension Surgical History History of surgery on arm S/P trigger finger release Hx of tonsillectomy Family History Family/Other No problems noted. Mother Lung cancer, Onset Age: 63 Social History Housing: House Alcohol intake: former Patient Tobacco Use Status: Former Tobacco user Tobacco use type: Cigarette e-Cigarette/Vaping Use: Never Used Second Hand Smoke Exposure: No service: No Current occupational status: employed Current occupation: [employer] Current occupational exposures/hazards: Yes Cognitive needs: No Hearing needs: Yes Vision needs: Yes Female Reproductive History Menstrual Age of Menarche: 16 Review of Systems Const All systems reviewed & are unremarkable except as noted in HPI and below Physical Exam Vital Signs: Last Vital Signs Pulse 82 04/10/24 13:35 BP 176/67 H 04/10/24 13:35 BMI result Body Mass Index 37.6 Gen appear: NAD, well nourished HEENT: no icterus, no cervical lymphadenopathy Chest: clear to auscultation CVS: Regular S1/S2 Abd: soft, nontender, nondistended Ext: no peripheral edema Neuro: A/Ox3, noted to move all extremities spontaneously Assessment & Plan Assessment & Plan (1) Positive colorectal cancer screening using Cologuard test: Code(s): R19.5 - Other fecal abnormalities Category: Medical (2) BMI 39.0-39.9,adult: Code(s): Z68.39 - Body mass index [BMI] 39.0-39.9, adult Category: Medical Plan reviewed implications of positive cologuard i.e + polyp/tumor DNA vs + heme vs false positive. Needs a diagnostic colo to investigate further. Plan: - [place] to be booked - PEG + bisacodyl sent - Cologuard was done in Feb 2024 - pt aware to upload results in portal. Follow up after colo as needed. Medications: New peg 3350-electrolytes 236-22.74-6.74 -5.86 gram (Golytely) as per split prep instructions, until fecal effluent is clear 240 mL PO Q10M 4,000 mL 0RF colonoscopy bisacodyl 20 mg (4 x 5 mg) PO BEDTIME 4 tabs 0RF Coding Level of Care Code New Pt Level 4 (68209) Diagnoses Positive colorectal cancer screening using Cologuard test R19.5 BMI 39.0-39.9,adult Z68.39
[2024-04-10 13:35] VITALS: BP 176/67; PULSE 82; BMI 37.6
== END 2024-04-10 14:18 | disposition home or self-care (01) ==
PROVIDERS: PCP Internal Medicine; Visit Provider Internal Medicine
DX: R19.5 Other fecal abnormalities (principal); Z68.39 Body mass index [BMI] 39.0-39.9, adult
CPT/HCPCS: 99204

== ENCOUNTER → 2024-04-10 13:22 | Outpatient (BNVA) | payer MEDICARE, SELFPAY | PROVIDERS: PCP Internal Medicine; Visit Provider Internal Medicine | DX: R19.5 Other fecal abnormalities (principal); E66.01 Morbid (severe) obesity due to excess calories; Z68.37 Body mass index [BMI] 37.0-37.9, adult | CPT/HCPCS: 99202 ==

== ENCOUNTER 2024-04-11 13:04 | Outpatient (REF) | payer MEDICARE, SELFPAY ==
[2024-04-21 15:08] LABS: HPV Genotype 16 Negative (Negative); HPV Genotype 18 Negative (Negative); HPV High Risk Negative (Negative)
== END 2024-04-11 13:05 | disposition home or self-care (01) ==
LOC: HO.LNP 13:04
PROVIDERS: PCP Internal Medicine; Visit Provider Advanced Practice Midwife
DX: Z13.89 Encounter for screening for other disorder (principal)
CPT/HCPCS: 87626; 88175

== ENCOUNTER 2024-04-11 13:55 | Outpatient (REF) | payer MEDICARE, SELFPAY ==
[2024-04-11 14:31] LABS: MANUAL DIFF FLAG NO
[2024-04-11 15:18] LABS: Basophils Percent Auto 0.6 % (0-2); Eosinophils Absolute Auto 0.1 X10*3/uL (0.0-0.4); Eosinophils Percent Auto 2.1 % (0-4); Hematocrit 39.7 % (37.0-47.0); Hemoglobin 12.7 g/dl (12.0-16.0); Imm Gran Abs Auto 0.01 X10*3/uL (0.00-0.03); Imm Gran Pct Auto 0.2 % (0.0-0.4); Lymphocytes Absolute Auto 1.6 X10*3/uL (1.2-4.9); Lymphocytes Percent Auto 25.4 % (20-40); Mean Corpuscular Hemoglobin 27.1 pg (27.0-33.0); Mean Corpuscular Volume 84.6 fL (80.0-98.0); Mean Platelet Volume 9.6 fL (9.4-12.3); Monocytes Absolute Auto 0.6 X10*3/uL (0.1-1.2); Neutrophils Percent Auto 62.7 % (45-73); Platelet Count 310 X10*3/uL (160-400); Red Blood Count 4.69 X10*6/uL (4.20-5.50); Red Cell Distribution Width 12.9 % (11.0-16.0); White Blood Count 6.3 X10*3/uL (4.8-10.8)
[2024-04-11 16:04] LABS: Albumin Level 4.3 g/dL (3.5-5.0); Alkaline Phosphatase 60 U/L (39-117); Anion Gap 11 (12-20); Aspartate Amino Transferase 18 U/L (5-31); Bilirubin Total 0.5 mg/dL (0.0-1.0); Blood Urea Nitrogen 14 mg/dL (9-16); Calcium 9.6 mg/dL (8.4-10.2); Carbon Dioxide 29 mmol/L (22-29); Chloride 105 mmol/L (96-108); Cholesterol 170 mg/dL (<200); Estimated Glomerular Filt Rate > 60; Glucose Random 106 mg/dL (60-115); HDL Cholesterol 50 mg/dL (>40); LDL Cholesterol Calculated 102 mg/dL (<100); Potassium 3.9 mmol/L (3.3-5.1); Sodium 141 mmol/L (135-145); Total Protein 7.6 g/dL (6.5-8.0); Triglycerides 92 mg/dL (<150)
[2024-04-11 16:27] LABS: Alanine Aminotransferase 26 U/L (0-31)
== END 2024-04-11 13:56 | disposition home or self-care (01) ==
LOC: HO.LAB 13:55
PROVIDERS: Absent Provider Advanced Practice Midwife; PCP Internal Medicine; Visit Provider Internal Medicine
DX: Z01.419 Encounter for gynecological examination (general) (routine) without abnormal findings (principal); Z13.220 Encounter for screening for lipoid disorders; I10 Essential (primary) hypertension; E11.9 Type 2 diabetes mellitus without complications
CPT/HCPCS: 36415; 80053; 80061; 85025; 87626; 88175; G0101; Q0091

== ENCOUNTER 2024-04-19 14:38 | Outpatient (REF) | payer MEDICARE, SELFPAY ==
[2024-04-19 14:52] LABS: Total Volume 24 Hour Urine 1950 mL
[2024-04-19 15:16] LABS: Microalbumin Excretion Rate Ur 10 mg/24Hr
== END 2024-04-19 14:39 | disposition home or self-care (01) ==
LOC: HO.LNP 14:38
PROVIDERS: Visit Provider Internal Medicine
DX: E11.9 Type 2 diabetes mellitus without complications (principal); I10 Essential (primary) hypertension; Z13.220 Encounter for screening for lipoid disorders
CPT/HCPCS: 82043

== ENCOUNTER 2024-05-11 10:52 | Outpatient (REF) | payer MEDICARE, SELFPAY ==
--- NOTE | ~2024-05-11 | MM_ITS ---
EXAMINATION: MM DIAGNOSTIC DIGITAL BREAST TOMOSYNTHESIS, RIGHT Limited right breast ultrasound. CLINICAL INFORMATION: Call back from screening for focal asymmetry in the upper outer breast and question calcifications. COMPARISON: Mammography: Available priors on PACS. TECHNIQUE: Digital breast tomosynthesis is performed in both the craniocaudal and mediolateral oblique views along with computer-aided detection (CAD). Synthesized 2D images are generated from the tomosynthesis. Limited right breast ultrasound. FINDINGS: There are scattered areas of fibroglandular density (ACR BI-RADS breast composition Category b). Focal asymmetry in the upper outer breast partially effaces on additional imaging projections there are questionable punctate calcifications in the upper outer quadrant. No suspicious masses or other abnormal findings. Targeted color Doppler ultrasound scanning in the upper outer quadrant demonstrates normal fibroglandular breast tissue. MM/MM tomosynthesis added views R IMPRESSION: Focal asymmetry in the upper-outer breast with associated punctate faint calcifications without sonographic correlate. Recommend six-month follow-up mammography for further evaluation of stability. ASSESSMENT: BI-RADS BI-RADS 3 - Probably benign finding(s) - 6 month follow-up suggested RECOMMENDATION: 6 Month F/U Results were provided to the patient at time of visit by the technologist. This patient's information was entered into a reminder system with a target due date for their next mammogram. Electronically signed by: Cira Carver DO 05/11/2024 12:04 PM RACHEL ZIMMERMAN
== END 2024-05-11 10:53 | disposition home or self-care (01) ==
LOC: HO.MAMMO 10:52
PROVIDERS: PCP Internal Medicine; Visit Provider Internal Medicine
DX: N64.89 Other specified disorders of breast (principal)
CPT/HCPCS: 76642; 77061; 77065

== ENCOUNTER → 2024-05-11 11:00 | Outpatient (BNV) | payer MEDICARE, SELFPAY | PROVIDERS: PCP Internal Medicine; Visit Provider Internal Medicine | DX: R92.8 Other abnormal and inconclusive findings on diagnostic imaging of breast (principal) | CPT/HCPCS: 76642 ==

== ENCOUNTER 2024-06-07 12:56 | Outpatient (RCR) | payer MEDICARE, SELFPAY | END 2024-08-04 15:25 | disposition home or self-care (01) | LOC: HO.PT 12:56 | PROVIDERS: PCP Internal Medicine; Visit Provider Orthopaedic Surgery Foot and Ankle Surgery | DX: M76.61 Achilles tendinitis, right leg (principal); M76.62 Achilles tendinitis, left leg | CPT/HCPCS: 97035; 97110; 97140; 97161; 97530; 97535 ==

== ENCOUNTER 2024-06-15 06:42 | Day surgery (SDC) | payer MEDICARE, SELFPAY ==
[2024-06-13 10:03] VITALS: BMI 37.6
--- NOTE | 2024-06-14 08:21 | P.CONAN_ITS ---
Documented by User: Lena Jang NP 06/14/24 08:21 HPI - Anesthesia Eval Consult details Narrative: 68yo F for Colonoscopy PMFSH Active Problems Active Problems: All Active Problems Positive colorectal cancer screening using Cologuard test (Acute) Screening for hyperlipidemia (Acute) Achilles tendonitis, bilateral (Acute) Encounter for Medicare annual wellness exam (Acute) Screen for colon cancer (Acute) SHALONDA on CPAP (Acute) Diabetes mellitus (Acute) Thinning hair (Acute) Situational anxiety (Acute) Normal physical exam (Acute) Trigger finger, right middle finger (Acute) Trigger finger, right ring finger (Acute) Hearing reduced (Acute) Lipoma of back (Acute) Lipoma (Acute) BMI 39.0-39.9,adult (Acute) Well woman exam with routine gynecological exam (Acute) Hypertension (Acute) Trigger finger, right (Acute) Past Medical History Medical History Diabetes Morbid obesity BMI 40.0-44.9, adult SHALONDA on CPAP Hx of obesity Hypertension Family History Family History Family/Other No problems noted. Mother Lung cancer, Onset Age: 63 Surgical History Surgical History History of surgery on arm S/P trigger finger release Hx of tonsillectomy Social History Social History Housing: House Alcohol intake: former Patient Tobacco Use Status: Former Tobacco user Tobacco use type: Cigarette e-Cigarette/Vaping Use: Never Used Second Hand Smoke Exposure: No Use of substances other than those prescribed or required for medical reasons: No Are you DNR?: No Advance Directives: No Advance Directives Information Provided: Yes service: No Current occupational status: employed Current occupation: [employer] Current occupational exposures/hazards: Yes Cognitive needs: No Hearing needs: Yes Vision needs: Yes Meds Allergies Allergy/AdvReac Type Severity Reaction Status Date / Time rabies vaccine, human Allergy Unknown sick Verified 04/11/24 13:08 diploid cell duck embryo Allergy Unknown makes her Uncoded 04/07/24 13:43 sick Home Medications ?Medication ?Instructions ?Recorded ?Confirmed ?Last Taken ?Type minoxidil 10 mg tablet 5 mg PO DAILY 06/22/23 11/01/23 Unknown History cholecalciferol (vitamin D3) PO 12/31/23 Unknown History multivitamin 1 tab PO DAILY 12/31/23 Unknown History Exam Height,Weight and Vital Signs: Height 5 ft 7 in Weight 108.862 kg Assessment and Plan Assessment Anesthesia Assessment: Chart Reviewed Documented by User: Rojas Coyne MD 06/15/24 07:20 [facility] [place] Past Medical History Medical History Diabetes Morbid obesity BMI 40.0-44.9, adult SHALONDA on CPAP Hx of obesity Hypertension Family History Family History Family/Other No problems noted. Mother Lung cancer, Onset Age: 63 Family history of problems with anesthesia: No Surgical History Surgical History History of surgery on arm S/P trigger finger release Hx of tonsillectomy History of Problems with Anesthesia: No Social History Social History Housing: House Alcohol intake: former Patient Tobacco Use Status: Former Tobacco user Tobacco use type: Cigarette e-Cigarette/Vaping Use: Never Used Second Hand Smoke Exposure: No Use of substances other than those prescribed or required for medical reasons: No Are you DNR?: No Advance Directives: No Advance Directives Information Provided: Yes service: No Current occupational status: employed Current occupation: [employer] Current occupational exposures/hazards: Yes Cognitive needs: No Hearing needs: Yes Vision needs: Yes Meds Allergies Allergy/AdvReac Type Severity Reaction Status Date / Time rabies vaccine, human Allergy Unknown sick Verified 04/11/24 13:08 diploid cell duck embryo Allergy Unknown makes her Uncoded 04/07/24 13:43 sick Home Medications ?Medication ?Instructions ?Recorded ?Confirmed ?Last Taken ?Type minoxidil 10 mg tablet 5 mg PO DAILY 06/22/23 11/01/23 Unknown History cholecalciferol (vitamin D3) PO 12/31/23 Unknown History multivitamin 1 tab PO DAILY 12/31/23 Unknown History Exam Airway Mallampati Class: III TM Dist: >3cm Neck ROM: Full Assessment and Plan Assessment Anesthesia Assessment: Anesthesia Plan Discussed Final Anesthetic Review Family History of Problems with Anesthesia: No History of Problems with Anesthesia: No NPO: Yes ASA Class: III Final Preanesthetic Review: No Changes in Pt Med Stat, Meds/Allgs Chart Reviewed, Consent Obtained/Reviewed and Anes Risks/Benef Reviewed Patient Risk: Intermediate Procedure Risk: Low Anesthetic Plan Anesthetic Plan: TIVA Disposition: Standard PACU
[2024-06-15 06:51] VITALS: BMI 37.4
[2024-06-15 07:05] VITALS: BP 146/67; PULSE 96; RESP 15; TEMP 36.1; O2SAT 95
[2024-06-15 07:19] LABS: Glucose, Whole Blood 119 mg/dL (60-115)
[2024-06-15] MEDS: Lactated Ringers 1,000 ML 100 ML IVCONT (07:20)
--- NOTE | 2024-06-15 07:54 | MHC.SHP ---
Pre-Procedural Eval Section A - 24 Hr Update-Section A only Date of Service: 06/15/24 Section B - Complete if H&P > 30 days Chief Complaint: Other fecal abnormalities Details of Present Illness: Morbid obesity BMI 40.0-44.9, adult SHALONDA on CPAP Hx of obesity Hypertension Surgical History History of surgery on arm S/P trigger finger release Hx of tonsillectomy Present Medications: see Short Stay Collaborative assessment Allergies: Allergies Allergy/AdvReac Type Severity Reaction Status Date / Time rabies vaccine, human Allergy Unknown sick Verified 06/15/24 07:21 diploid cell duck embryo Allergy Unknown makes her Uncoded 04/07/24 13:43 sick Review of Systems Review of Systems Comment: Ten point ROS negative Exam Exam Comment: Gen appear: No acute distress HEENT: no icterus Chest: No overt resp distress Abd: soft, nontender, nondistended Psych: Stable affect, answering questions appropriately Neuro: A/Ox3 noted to move all extremities spontaneously Ext: no peripheral edema Plan Diagnosis/Plan: Unchanged I have reviewed the history and physical and performed a pertinent physical examination on my patient. No changes have occurred unless specified. Time Spent With Patient Time: Total time managing care of this patient today ____ minutes.
--- NOTE | 2024-06-15 08:21 | P.OPN-COLO_ITS ---
Colonoscopy Operative Note Operative Note Date of Service: 06/15/24 Narrative: Procedure: Colonoscopy Indication: Positive cologuard Endoscopist: Ifrah Blair MD Anesthesia Provider: Dr Rojas Coyne Anesthesia type: MAC Instrument: Olympus [id number]-[id number] Consent: Indication, risks vs benefits, and alternatives were discussed with the patient who gave written informed consent to proceed. EKG, pulse, pulse oximetry and blood pressure were monitored throughout the procedure. Please see anesthesia flowsheet. Procedure: The patient was brought to the procedure room. An abdominal binder was affixed to the lower abdomen and she was then placed in the left lateral decubitus position. IV medications were administered by the anesthesia provider in attendance. A digital rectal exam was performed which was abnormal due to finding of hemorrhoids. A distal attachment cap was affixed to the tip of the colonoscope which was then inserted through the anus and advanced through the colon to the cecum at 75 cm,and terminal ileum. Appendiceal orifice and ileocecal valve were identified. Mucosa was carefully examined under high definition white light as the instrument was slowly withdrawn in a retrograde panoramic fashion. Retroflexion was performed in rectum. The procedure was not difficult. There were no immediate obvious complications. The quality of the prep was BBPS: 3+2+3 = adequate Withdrawal time 10 minutes. Limitations: No limitations. Findings: Mucosa: Normal to cecum and terminal ileum. Protruding lesions: * Large internal hemorrhoids with stigmata of recent bleeding. Excavated lesions: * Moderate diverticulosis of left sided colon. Impression: 1. Normal colon mucosa 2. Diverticulosis 3. External and internal hemorrhoids Recommendations: - Repeat colonoscopy for asymptomatic colorectal ca screening recommended in 10 years.
[2024-06-15 08:28] VITALS: BP 112/60; PULSE 75; RESP 15; TEMP 36.9; O2SAT 95
[2024-06-15 08:42] VITALS: BP 116/59; PULSE 74; RESP 15; O2SAT 98
[2024-06-15 08:56] VITALS: BP 124/61; PULSE 70; RESP 18; TEMP 36.7; O2SAT 98
== END 2024-06-15 09:14 | disposition home or self-care (01) ==
PROVIDERS: PCP Internal Medicine; Visit Provider Internal Medicine
PROC: 0DJD8ZZ Inspection of Lower Intestinal Tract, Via Natural or Artificial Opening Endoscopic (ICD-10-PCS; CPT 45378; principal; 2024-06-15 08:20)
DX: R19.5 Other fecal abnormalities (principal); K57.30 Diverticulosis of large intestine without perforation or abscess without bleeding; K64.8 Other hemorrhoids; K64.4 Residual hemorrhoidal skin tags; E11.9 Type 2 diabetes mellitus without complications; I10 Essential (primary) hypertension; G47.33 Obstructive sleep apnea (adult) (pediatric); Z99.89 Dependence on other enabling machines and devices; E66.9 Obesity, unspecified; Z68.37 Body mass index [BMI] 37.0-37.9, adult; Z87.891 Personal history of nicotine dependence
CPT/HCPCS: G0121; 82947; J2003; J2704

== ENCOUNTER → 2024-06-15 06:42 | Outpatient (BNV) | payer MEDICARE, SELFPAY | PROVIDERS: PCP Internal Medicine; Visit Provider Internal Medicine | DX: Z12.11 Encounter for screening for malignant neoplasm of colon (principal); R19.5 Other fecal abnormalities; K57.30 Diverticulosis of large intestine without perforation or abscess without bleeding; K64.8 Other hemorrhoids | CPT/HCPCS: G0121 ==

== ENCOUNTER 2024-07-05 12:52 | Outpatient (AMB) | payer MEDICARE, SELFPAY ==
--- NOTE | 2024-07-05 13:06 | MHC.OFFVIS ---
Vital Signs 07/05/24 13:07 Height 5 ft 7.5 in Weight 240 lb 4.862 oz BMI 37.1 BP 126/71 Blood Pressure Location Lt brachial Position Sitting Pulse 68 Intake Visit Reasons: S/P colo Intake Note: Yasmin presents in the office as a follow up COLO. CC: She just wants to follow up on the results. Litigation Assistant Required: No Allergies rabies vaccine, human diploid cell Allergy (Unknown, Verified 07/05/24 13:08) sick duck embryo Allergy (Unknown, Uncoded 07/05/24 13:08) makes her sick HPI Comments Details: 68 year old female presenting to the office for discussion of colon cancer screening. Pt has been doing stool based testing for CRC screening all this time. Most recent cologuard in 02/2024 was POSITIVE and hence was referred here. Patient is at average risk of colon cancer due to no positive family history of colon cancer in first degree relatives. Patient does not have any other gastrointestinal symptoms to include abdominal pain, nausea, vomiting, diarrhea, blood in stool, weight loss. Recent labs not available - pt plans to get these done today. Quit smoking in 1996. Quit drinking in 2020. 06/15/24: 1. Normal colon mucosa 2. Diverticulosis 3. External and internal hemorrhoids Recommendations: - Repeat colonoscopy for asymptomatic colorectal ca screening recommended in 10 years. 07/05/24: Here for follow-up after colonoscopy. Has no acute GI concerns including abdominal pain, nausea, vomiting. Previous IBS related symptoms including lower abdomen spasm with change in bowel habits have resolved since colonoscopy. However, would like to keep a refill of antispasmodic at hand just in case. Patient would also like to get screened for chronic hepatitis. [facility] Medical History (Updated 07/05/24 @ 16:51 by Ifrah Blair MD) Diabetes Morbid obesity BMI 40.0-44.9, adult SHALONDA on CPAP Hx of obesity Hypertension Surgical History (Updated 07/05/24 @ 13:08 by ROSALES Sargent) Hx of colonoscopy History of surgery on arm S/P trigger finger release Hx of tonsillectomy Family History Family/Other No problems noted. Mother Lung cancer, Onset Age: 63 Social History Housing: House Alcohol intake: former Patient Tobacco Use Status: Former Tobacco user Tobacco use type: Cigarette e-Cigarette/Vaping Use: Never Used Second Hand Smoke Exposure: No service: No Current occupational status: employed Current occupation: [employer] Current occupational exposures/hazards: Yes Cognitive needs: No Hearing needs: Yes Vision needs: Yes Female Reproductive History Menstrual Age of Menarche: 16 Review of Systems Const All systems reviewed & are unremarkable except as noted in HPI and below Physical Exam Vital Signs: Last Vital Signs Pulse 68 07/05/24 13:07 BP 126/71 07/05/24 13:07 BMI result Body Mass Index 37.1 No apparent distress Nonicteric Abdomen soft, nondistended Alert and oriented x3, normal gait Assessment & Plan Assessment & Plan (1) Diverticulosis: Code(s): K57.90 - Diverticulosis of intestine, part unspecified, without perforation or abscess without bleeding Category: Medical (2) Encounter for hepatitis C screening test for low risk patient: Code(s): Z11.59 - Encounter for screening for other viral diseases Category: Medical (3) Screen for colon cancer: Code(s): Z12.11 - Encounter for screening for malignant neoplasm of colon Category: Medical Plan 1. Diverticulosis noted during colonoscopy Reviewed fiber intake, consuming red meat and alcohol in moderation. Also educated on potential complications that can not be predicted including diverticulitis, diverticular bleeding, scad etc. 2. Screening for hepatitis Hepatitis serologies ordered as per CDC guidelines and patient's request 3. Diagnostic colonoscopy followed by the positive ogkatherine was negative. Next colonoscopy recommended in 10 years P.r.n. follow-up Orders: Orders Hepatitis A IgG Today Z11.59 - Encounter for screening for other viral diseases Hepatitis B Surface Antigen Today Z11.59 - Encounter for screening for other viral diseases Hepatitis C Antibody Today Z11.59 - Encounter for screening for other viral diseases Hepatitis B Surface Antibody Today Z11.59 - Encounter for screening for other viral diseases Medications: New hyoscyamine sulfate 0.125 mg PO BID-QID PRN 90 tabs 0RF abd pain hyoscyamine sulfate 0.125 mg PO BID-QID PRN 90 tabs 0RF abd pain Discontinued diclofenac sodium 1% (Voltaren Arthritis Pain) apply to single knee, ankle, foot; for foot includes sole/toes/top of foot Discontinued Reason: Patient Completed Course 4 grams topical QID 100 grams 3RF Coding Level of Care Code Est Pt Level 4 (02833) Diagnoses Diverticulosis K57.90 Encounter for hepatitis C screening test for low risk patient Z11.59 Screen for colon cancer Z12.11
[2024-07-05 13:07] VITALS: BP 126/71; PULSE 68; BMI 37.1
== END 2024-07-05 16:42 | disposition home or self-care (01) ==
LOC: HO.HGI 12:53
PROVIDERS: PCP Internal Medicine; Visit Provider Internal Medicine
DX: K57.90 Diverticulosis of intestine, part unspecified, without perforation or abscess without bleeding (principal)
CPT/HCPCS: 99212

== ENCOUNTER → 2024-07-05 12:52 | Outpatient (BNVA) | payer MEDICARE, SELFPAY | PROVIDERS: PCP Internal Medicine; Visit Provider Internal Medicine | DX: K57.90 Diverticulosis of intestine, part unspecified, without perforation or abscess without bleeding (principal); Z71.2 Person consulting for explanation of examination or test findings; Z98.890 Other specified postprocedural states | CPT/HCPCS: 99212 ==

== ENCOUNTER 2024-07-15 14:24 | Emergency (ER) | payer MEDICARE, SELFPAY ==
--- NOTE | ~2024-07-15 | XR_ITS ---
CLINICAL HISTORY: fall, pain swelling 3 view left ankle Comparison: None Findings: No significant arthritic change or erosions. Ankle joint effusion noted. No radiopaque foreign body. Calcaneal plantar and Achilles enthesopathy. Linear lucency through the tip of the lateral malleolus, possibly avulsion injury with overlying lateral soft tissue swelling of the ankle. Ankle mortise is congruent. IMPRESSION: Possible avulsion injury of the tip of the lateral malleolus with overlying soft tissue swelling and ankle joint effusion. This document has been electronically signed by: Miguel Ferrari MD, PHD on 07/15/2024 15:54:44
--- NOTE | ~2024-07-15 | XR_ITS ---
CLINICAL HISTORY: fall, pain swelling 3 view left foot Comparison: DX/SR - XR FOOT LT MIN 3V - 01/20/2024 03:19 PM EST Findings: Bones of the foot are intact. No dislocations. No significant arthritic change or erosions. Ankle joint effusion is present. No radiopaque foreign body. Calcaneal plantar and Achilles enthesopathy noted. IMPRESSION: 1. No acute osseous abnormality of the foot 2. Ankle joint effusion. This document has been electronically signed by: Miguel Ferrari MD, PHD on 07/15/2024 15:59:10
[2024-07-15 14:34] VITALS: BP 173/92; PULSE 91; RESP 20; TEMP 36.2; O2SAT 93; BMI 38.1
--- NOTE | 2024-07-15 14:35 | ED.LOWEXIN ---
HPI - Extremity Injury (Lower) General Chief Complaint: Extremity Injury, Lower Stated Complaint: L ankle pain Time Seen by Provider: 07/15/24 15:24 Source: patient and RN notes reviewed Mode of arrival: ambulatory Limitations: no limitations History of Present Illness ED Provider: Kita Monteiro PA-C HPI Narrative: This is a 68-year-old female, with a past medical history of diabetes and hypertension, with concerns of left ankle pain since Wednesday (July 11). Patient states that while she was at home unloading her vehicle, she accidentally twisted her left ankle on a slanted curb. She states that she did feel a popping sensation at the time of the injury. She did not fall to the ground. She states that she has been able to weightbear on her left ankle which does not cause her to have pain. She does report that she has had increased swelling and bruising to her left ankle since the injury. Denies previous injury to her left ankle, she does report that she has had Achilles tendonitis which she was currently seeing [facility] for. She has been taking Tylenol, resting, icing, and elevating her left ankle which has provided her with some relief. No other complaints or concerns at this time. MD complaint: ankle injury Onset (ago): day(s) Type of Injury: inversion Place: home Severity: moderate Relieving factors: NSAID, cold therapy, immobilization and rest Exacerbating factors: palpation Associated symptoms: snap/pop sensation, swelling and ambulatory Other symptoms: none Related Data Home Medications ?Medication ?Instructions ?Recorded ?Confirmed minoxidil 10 mg tablet 5 mg PO DAILY 06/22/23 11/01/23 cholecalciferol (vitamin D3) PO 12/31/23 multivitamin 1 tab PO DAILY 12/31/23 Previous Rx's ?Medication ?Instructions ?Recorded blood sugar diagnostic (OneTouch #100 ea 06/22/23 Ultra Test strips) blood-glucose meter (OneTouch #1 ea 06/22/23 Ultra2 Meter) lancets 30 gauge (OneTouch #100 ea 06/22/23 UltraSoft 2 Lancet) blood-glucose meter (FreeStyle #1 ea 06/23/23 Lite Meter kit) CPAP #1 ea 06/29/23 blood sugar diagnostic (FreeStyle #100 ea 04/12/24 Lite Strips) lancets 28 gauge (FreeStyle #100 ea 04/12/24 Lancets) metformin 500 mg tablet 500 mg PO BID 90 days #180 tabs 05/30/24 valsartan 160 1 tab PO DAILY #90 tabs 06/21/24 mg-hydrochlorothiazide 12.5 mg tablet hyoscyamine sulfate 0.125 mg tablet 0.125 mg PO BID-QID PRN abd pain 07/05/24 #90 tabs Allergies Allergy/AdvReac Type Severity Reaction Status Date / Time rabies vaccine, human Allergy Unknown sick Verified 07/15/24 14:37 diploid cell duck embryo Allergy Unknown makes her Uncoded 07/05/24 13:08 sick Review of Systems Review of Systems: Constitutional: No Weight loss, No Fever, No Chills, No Night Sweats, No Fatigue, No Malaise ENT/Mouth: No Hearing loss, No Ear Pain, No Nasal Congestion, No Sinus Pain, No Hoarseness, No sore throat, No Rhinorrhea, No Swallowing Difficulty Eyes: No Eye Pain, No Swelling, No Redness, No Foreign Body, No Discharge, No Vision Changes Cardiovascular: No Chest Pain, No SOB, No Dyspnea on Exertion, No Orthopnea, No Edema, No Palpitations Respiratory: No Cough, No Sputum, No Wheezing, No Smoke Exposure, No Dyspnea Gastrointestinal: No Nausea, No Vomiting, No Diarrhea, No Constipation, No Abdominal pain, No Hematochezia, No Melena Genitourinary: No irregular bleeding, No Dysuria, No Urinary Frequency, No Hematuria, No Urinary Incontinence/retention, No Urgency, No Flank Pain, No Urinary Flow Changes, No Hesitancy Musculoskeletal: + joint pain, No Myalgias, +Joint Swelling Skin: No Skin Lesions, No rash Neuro: No Weakness, No Numbness, No Paresthesias, No Loss of Consciousness, No Dizziness, No Headache Psych: No Anxiety/Panic, No Depression, No SI/HI/AH/VH, No Social Issues, Heme/Lymph: No Bruising, No Bleeding,No Lymphadenopathy Endocrine: No Polyuria, No Polydipsia, No Temperature Intolerance Yes all other systems are reviewed and are negative Constitutional: Constitutional: Reports as per [facility] Past Medical History Medical History (Updated 07/15/24 @ 16:21 by YULISA Douglas) Diabetes Morbid obesity BMI 40.0-44.9, adult SHALONDA on CPAP Hx of obesity Hypertension Surgical History (Updated 07/05/24 @ 13:08 by ROSALES Sargent) Hx of colonoscopy History of surgery on arm S/P trigger finger release Hx of tonsillectomy Family History Family History Family/Other No problems noted. Mother Lung cancer, Onset Age: 63 Social History Social History Housing: House Alcohol intake: former Patient Tobacco Use Status: Former Tobacco user Tobacco use type: Cigarette e-Cigarette/Vaping Use: Never Used Second Hand Smoke Exposure: No Advance Directives: No Advance Directives Information Provided: Yes service: No Current occupational status: employed Current occupation: [employer] Current occupational exposures/hazards: Yes Cognitive needs: No Hearing needs: Yes Vision needs: Yes Physical Exam Vital Signs: Vital Signs: Last Vital Signs Temp 98.3 F 07/15/24 16:29 Pulse 73 07/15/24 16:29 Resp 16 07/15/24 16:29 BP 165/78 H 07/15/24 16:29 Pulse Ox 95 07/15/24 16:29 O2 Del Method Room Air 07/15/24 16:29 BMI result Body Mass Index 38.1 General: Awake, alert, and oriented X3. No acute distress. HEENT: Normal inspection CVS: Normal heart rate and rhythm. Pulses normal. Respiratory: No respiratory distress Skin: Warm, dry, no rashes noted to exposed skin. Normal skin color. Normal skin turgor. Extremities: Left ankle with moderate healing ecchymosis and moderate edema noted to the lateral malleolus, with point tenderness to palpation along the distal end of the lateral malleolus. Decreased plantar and dorsiflexion secondary to edema. No pain with weight-bearing. Strong DP/PT pulse. Leg is well perfused, no calf tenderness. Capillary refill less than 2 seconds. Neuro: Oriented X 3. No motor deficit. No sensory deficit. Course Course Course Narrative: This is an RME performed by Ever Saleem [employer]PERVISOR: Additional HPI, ROS, PE not included below will be deferred to primary provider. Patient is a 68-year-old female who presents emergency department for evaluation of traumatic pain and swelling to the left ankle onset 5 days ago. S/P mechanical injury. Progressive ecchymosis and swelling. Reports that she just completed a course of physical therapy for left-sided Achilles ?Tendonitis. Plan: XR Medications Administered Discontinued Medications Generic Name Dose Route Start Last Admin Trade Name Aron PRN Reason Stop Dose Admin Acetaminophen 975 mg 07/15/24 15:57 07/15/24 16:11 Acetaminophen 325 Mg Tablet PO 07/15/24 15:58 Not Given ONCE ONE Medical Decision Making Medical Decision Making MDM Narrative: This is a 68-year-old female, with a past medical history of diabetes and hypertension, who presents emergency department with concerns for left ankle pain and swelling after twisting her ankle five days ago. On arrival, patient mildly hypertensive at 173/92, all other vital signs within normal limits. She is ambulatory with steady gait. Exam findings with moderate edema and tenderness palpation along the lateral malleolus. X-ray of the left ankle revealing possible avulsion injury of the tip of the lateral malleolus with overlying soft tissue swelling and ankle joint effusion. Discussed findings with patient. Will place patient in tall walking boot, given strict return precautions. She is being seen by [facility] already therefore she states that she will follow-up with them. Also given referral to [facility] if she is unable to be seen there. Patient understands and agrees with plan. Patient stable for discharge. Differential Diagnosis Differential Diagnoses: The differential diagnosis associated with the presentation includes Fracture, sprain, strain, contusion, dislocation Radiology Impression Discussion of test interpretation with radiology: I have reviewed the radiologist's reading. Radiologist Impression: Findings: No significant arthritic change or erosions. Ankle joint effusion noted. No radiopaque foreign body. Calcaneal plantar and Achilles enthesopathy. Linear lucency through the tip of the lateral malleolus, possibly avulsion injury with overlying lateral soft tissue swelling of the ankle. Ankle mortise is congruent. IMPRESSION: Possible avulsion injury of the tip of the lateral malleolus with overlying soft tissue swelling and ankle joint effusion. This document has been electronically signed by: Miguel Ferrari MD, PHD on 07/15/2024 15:54:44 Dictated By: Miguel Ferrari MD Findings: Bones of the foot are intact. No dislocations. No significant arthritic change or erosions. Ankle joint effusion is present. No radiopaque foreign body. Calcaneal plantar and Achilles enthesopathy noted. IMPRESSION: 1. No acute osseous abnormality of the foot 2. Ankle joint effusion. This document has been electronically signed by: Miguel Ferrari MD, PHD on 07/15/2024 15:59:10 Dictated By: Miguel Ferrari MD Procedures Orthopedic Splinting/Casting Injury #1: Side: left Lower Extremity Injury Location: ankle Additional Comments: Tall walking boot Discharge Plan Discharge Clinical Impression: Fracture of lateral malleolus Qualifiers: Encounter type: initial encounter Fracture type: closed Fracture alignment: nondisplaced Laterality: left Qualified Code(s): S82.65XA - Nondisplaced fracture of lateral malleolus of left fibula, initial encounter for closed fracture Patient Disposition: Home, Self-Care Instructions: Ankle Fracture (ED) Additional Instructions: You were seen in the emergency department due to left ankle pain. Your x-rays concerning for a small avulsion fracture of your lateral malleolus (ankle bone). Please continue resting, icing, and elevating your ankle. Take Tylenol as needed for pain. Use walking boot whenever your weight bearing. Follow-up with your orthopedic doctor, call on Wednesday to make an appointment. If you are unable to follow-up with them, you may follow-up with the [place] [facility] team. If any new or worsening symptoms occur including but not limited to increased pain, swelling, decreased sensation of your foot, discoloration of your foot, please seek emergent care. Prescriptions: No Action (DME) blood-glucose meter [FreeStyle Lite Meter] Kit See Rx Instructions .Route Qty: 1 0RF Rx Instructions: As directed (DME) CPAP Device See Rx Instructions .Route Qty: 1 0RF Rx Instructions: As directed (DME) FreeStyle Lite Strips Strip See Rx Instructions .Route Qty: 100 3RF Rx Instructions: Use 1 test strip once a day (DME) lancets [FreeStyle Lancets] 28 gauge misc See Rx Instructions .Route Qty: 100 3RF Rx Instructions: Use 1 lancet once a day metformin 500 mg tablet 500 mg PO BID 90 Days Qty: 180 3RF valsartan-hydrochlorothiazide 160-12.5 mg tablet 1 tab PO DAILY Qty: 90 3RF minoxidil 10 mg tablet 5 mg PO DAILY (DME) blood-glucose meter [OneTouch Ultra2 Meter[place] [facility] [place]ructions .Route Qty: 1 0RF Rx Instructions: As directed (DME) OneTouch Ultra Test Strip See Rx Instructions .Route Qty: 100 3RF Rx Instructions: Use 1 test strip once a day (DME) lancets [OneTouch UltraSoft 2 Lancet] 30 gauge misc See Rx Instructions .Route Qty: 100 3RF Rx Instructions: Use 1 lancet once a day multivitamin Tablet 1 tab PO DAILY cholecalciferol (vitamin D3) PO Rx Instructions: . hyoscyamine sulfate 0.125 mg tablet 0.125 mg PO BID-QID PRN (Reason: abd pain) Qty: 90 0RF Referrals: [facility] Orthopedic Surgeons [Provider Group] Interventions: ED Discharge Assessment Last Done: 07/15/24 16:29 Discharge Date/Time: 07/15/24 16:32 Print Language: Sami
[2024-07-15 15:28] VITALS: BP 165/78; PULSE 73; RESP 16; TEMP 36.8; O2SAT 95
--- NOTE | 2024-07-15 15:31 | PC.NURSE ---
Pt rolled ankle off curb on Wednesday, here some sounds swelling noted, healing bruise noted to outer ankle and heal. Pt able to bare some weight on ankle, has been taking the stairs one at a time at home. Denies previous ankle injuries. Just finished PT for bilt foot tendinitis. Denies pain at this time. Awaiting provider at this time
[2024-07-15 16:29] VITALS: BP 165/78; PULSE 73; RESP 16; TEMP 36.8; O2SAT 95
== END 2024-07-15 16:32 | disposition home or self-care (01) ==
PROVIDERS: Emergency Provider Emergency Medicine; PCP Internal Medicine
DX: S82.65XA Nondisplaced fracture of lateral malleolus of left fibula, initial encounter for closed fracture (principal); X50.1XXA Overexertion from prolonged static or awkward postures, initial encounter; M25.572 Pain in left ankle and joints of left foot; Y93.89 Activity, other specified; Y92.480 Sidewalk as the place of occurrence of the external cause; Y99.9 Unspecified external cause status
CPT/HCPCS: 73610; 73630; 99284

== ENCOUNTER → 2024-07-15 14:39 | Outpatient (BNV) | payer MEDICARE, SELFPAY | PROVIDERS: PCP Internal Medicine; Visit Provider General Practice | DX: M25.572 Pain in left ankle and joints of left foot (principal); M25.472 Effusion, left ankle | CPT/HCPCS: 73610; 73630 ==

== ENCOUNTER 2024-11-07 12:18 | Outpatient (REF) | payer MEDICARE, SELFPAY ==
--- NOTE | ~2024-11-07 | MM_ITS ---
EXAMINATION: MM DIAGNOSTIC DIGITAL BREAST TOMOSYNTHESIS, RIGHT CLINICAL INFORMATION: This is a 6-month follow-up of right breast focal asymmetry located in the upper outer quadrant with associated calcifications, without sonographic correlate. COMPARISON: March 28, 2024 and May 11, 2024. TECHNIQUE: Digital breast tomosynthesis is obtained with spot compression views and spot magnified compression views. FINDINGS: BREAST COMPOSITION: There are scattered areas of fibroglandular density (ACR BI-RADS breast composition Category b). RIGHT BREAST: Previously described focal asymmetry in the upper outer quadrant with associated round calcifications are essentially unchanged from study from April 2024. MM/MM tomosynthesis diagnostic RT IMPRESSION: RIGHT BREAST: Focal asymmetry in the upper outer quadrant associated with calcifications without sonographic correlate, unchanged from April 2024. Probably benign. A 6-month follow-up is recommended as bilateral diagnostic mammogram expected in March 2025. ASSESSMENT: BI-RADS 3 - Probably benign finding(s) - 6 month follow-up suggested RECOMMENDATION: 6 Month F/U Results were provided to the patient at time of visit by the technologist. This patient's information was entered into a reminder system with a target due date for their next mammogram. Electronically signed by: Pilar Araujo MD 11/07/2024 01:18 PM EDT
== END 2024-11-07 12:19 | disposition home or self-care (01) ==
LOC: HO.MAMMO 12:18
PROVIDERS: PCP Internal Medicine; Visit Provider Internal Medicine
DX: N64.89 Other specified disorders of breast (principal)
CPT/HCPCS: 77061; 77065

== ENCOUNTER → 2024-11-07 12:30 | Outpatient (BNV) | payer MEDICARE, SELFPAY | PROVIDERS: PCP Internal Medicine; Visit Provider Radiology Body Imaging | DX: R92.8 Other abnormal and inconclusive findings on diagnostic imaging of breast (principal) | CPT/HCPCS: 77065; G0279 ==

== ENCOUNTER 2024-12-12 15:31 | Outpatient (AMB) | payer MEDICARE, SELFPAY ==
--- NOTE | 2024-12-12 15:34 | A.OFFVIS_ITS ---
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 Loose stools with twice daily. Last A1C 5.6 from 6.5 -she is due for labs. She has seen nutrition, lost some weight. Reports more dietary indiscretion. Eye exam UTD CV: On valsartan hctz 160/12.5. Blood pressure is controlled SHALONDA on cpap She has a large lipoma on her right upper back which has grown and has become painful over time. She would like to get this removed Sees [facility] [place] [facility] [place] [facility] [place]. Mammo 10/2024-6 month repeat recommended Colonoscopy 2024-06/2024 Shingrix ++ HRA reviewed Care team reviewed Independent ADLS MMSE-normal ROS see HPI PHYSICAL EXAM: GENERAL: Alert and oriented x 3. NAD EYES: EOMI. Anicteric. HENT: Moist mucous membranes. No scleral icterus. No cervical lymphadenopathy. LUNGS: Clear to auscultation bilaterally. CARDIOVASCULAR: Regular rate and rhythm. No murmur. No JVD. ABDOMEN: Soft, non-tender +bs EXTREMITIES: No edema. Non-tender. SKIN: No rashes or lesions. Warm. NEUROLOGIC: No focal neurological deficits. CN II-XII grossly intact PSYCHIATRIC: Cooperative. Appropriate mood and affect [facility] Medical History Diabetes Morbid obesity BMI 40.0-44.9, adult SHALONDA on CPAP Hx of obesity Hypertension Surgical History Hx of colonoscopy History of surgery on arm S/P trigger finger release Hx of tonsillectomy Family History Family/Other No problems noted. Mother Lung cancer, Onset Age: 63 Social History Housing: House Alcohol intake: former Patient Tobacco Use Status: Former Tobacco user Tobacco use type: Cigarette e-Cigarette/Vaping Use: Never Used Second Hand Smoke Exposure: No service: No Current occupational status: employed Current occupation: [employer] Current occupational exposures/hazards: Yes Cognitive needs: No Hearing needs: Yes Vision needs: Yes Female Reproductive History Menstrual Age of Menarche: 16 Questionnaire Medicare Wellness Checkup [age] What gender do you identify with?: female During the past 4 weeks, how much have you been bothered by emotional problems such as feeling anxious, depressed, irritable, sad or downhearted, and blue?: not at all During the past 4 weeks, has your physical & emotional health limited your social activities with family, friends, neighbors, or groups?: not at all During the past 4 weeks, how much bodily pain have you generally had?: no pain During the past 4 weeks, was someone available to help you if you needed & wanted help?: yes, as much as I wanted During the past 4 weeks, what was the hardest physical activity you could do for at least 2 minutes?: heavy Can you get to places out of walking distance without help? (For eg., can you travel alone on buses, taxis or drive your car?): Yes Can you go shopping for groceries or clothes without someone's help?: Yes Can you prepare your own meals?: Yes Can you do your housework without help?: Yes Because of any health problems, do you need the help of another person with your personal care needs such as eating, bathing, dressing or getting around the house?: Yes Can you handle your own money without help?: Yes During the past 4 weeks, how would you rate your health in general?: very good During the past 4 weeks how have things been going for you?: pretty well Are you having difficulties driving your car?: no Do you always fasten your seat belt when you are in a car?: yes, usually During past 4 weeks, have you been bothered by the following: never: Sexual problems?, Trouble eating well?, Teeth or denture problems?, Problems using the telephone? and Tiredness or fatigue? and often: Falling or dizzy when standing up (has vertigo) Have you fallen 2 or more times in the past year?: No Are you afraid of falling?: No Are you a smoker?: no (quit in 1996) During the past 4 weeks, how many drinks of wine, beer, or other alcoholic beverages did you have?: no alcohol at all Do you exercise for about 20 minutes 3 or more times a week?: no, I usually do not exercise this much Have you been given information to help with the following?: yes: Keeping track of your medications? and no: Hazards in your house that might hurt you? (pottery in basement, three stairs.) How often do you have trouble taking medicines the way you have been told to take them?: I always take medicine as prescribed How confident are you that you can control & manage most of your health problems?: very confident What is your race?: White Mini Mental State Exam (MMSE) Orientation What is the (year) (season) (date) (day) (month)?: year (2024), season (fall), date (), day (Wednesday) and month (November) Where are we (state) (county) (town or city) (hospital) (floor)?: state ([place]), [facility] ([place]), town or city ([facility]), hospital/clinic ([facility] ) and floor (One floor) Registration Name of 3 unrelated objects clearly and slowly, then ask patient to repeat all 3 of them. (1st repeat determines score. Make sure they can repeat all three): object 1 (Ball), object 2 (Flag) and object 3 (Tree) Attention & Calculation (CHOOSE ONE) Spell WORLD backwards (DLROW): 5 letters Recall Ask patient to repeat the 3 items from question #3.: object 1 (Ball), object 2 (flag) and object 3 (tree) Language Show patient a wristwatch & ask what it is. Repeat for pencil.: watch and pencil Ask the patient to repeat the phrase 'No ifs, ands, or buts' after you.: correct Ask the patient to 'take a piece of paper with their right hand' 'fold paper in half' 'place paper on floor': take paper in right hand, fold paper in half and place paper on floor Print the sentence 'CLOSE YOUR EYES' on a piece. If patient actually closes eyes then score.: followed written direction Give patient a blank piece of paper & ask to write a sentence. Score if it contains a noun & verb.: sentence contains subject and verb Ask patient to copy figure of intersecting pentagons exactly. Score if all 10 angles & 2 intersects are included.: all 10 angles present & 2 are intersected Score Score: 30 Activity of Daily Living Bathing - sponge bath, tub bath or shower: receives no assistance (gets in/out by self, if usual bathing means Dressing - getting clothes from closets & drawers, including inner/outer garments & fasteners.: gets clothes & gets completely dressed without help Toileting - going to the 'toilet room' for urine/bowel elimination & cleaning self/arranging clothes: goes to toilet room, cleans self, arranges clothes without help Transfer: moves in & out of bed and chair without help (may use support object) Continence: controls urination/bowel movements completely by self Feeding: feeds self without help Total Score: 0 Information obtained from: patient Using telephone: independent Traveling: independent Shopping: independent Preparing meals: independent Housework: independent Taking medicine: independent Managing money: independent Physical Exam Vital Signs: Last Vital Signs Pulse 75 12/12/24 15:50 Resp 14 12/12/24 15:50 BP 124/76 12/12/24 15:50 Pulse Ox 97 12/12/24 15:50 Oxygen Delivery Method Room Air 12/12/24 15:50 BMI result Body Mass Index 39.2 Assessment & Plan Assessment & Plan (1) Medicare annual wellness visit, subsequent: Code(s): Z00.00 - Encounter for general adult medical examination without abnormal fin dings (2) Lipoma: Code(s): D17.9 - Benign lipomatous neoplasm, unspecified Qualifiers: Lipoma location: other site Qualified Code(s): D17.79 - Benign lipomatous neoplasm of other sites (3) Diabetes mellitus: Code(s): E11.9 - Type 2 diabetes mellitus without complications Qualifiers: Diabetes mellitus type: type 2 Diabetes mellitus intermediate school teacher insulin use: without [place] [facility] use Diabetes mellitus complication status: without complication Qualified Code(s): E11.9 - Type 2 diabetes mellitus without complications (4) Hypertension: Code(s): I10 - Essential (primary) hypertension Qualifiers: Hypertension type: essential hypertension Qualified Code(s): I10 - Essential (primary) hypertension Plan MWV Interval history reviewed Preventive measures for age discussed Egg allergy-declines flu vaccination. Colonoscopy is up to date DM has been controlled. She is overdue for labs. Start trulicity. HTN well controlled. Low salt diet. Efforts toward weight loss Orders: Orders Complete Blood Count Auto Diff 12/12/24 E11.9 - Type 2 diabetes mellitus without complications, I10 - Essential (primary) hypertension Hemoglobin A1c 12/12/24 E11.9 - Type 2 diabetes mellitus without complications, I10 - Essential (primary) hypertension Comprehensive Met. Panel 12/12/24 E11.9 - Type 2 diabetes mellitus without complications, I10 - Essential (primary) hypertension Lipid Panel 12/12/24 E11.9 - Type 2 diabetes mellitus without complications, I10 - Essential (primary) hypertension Microalbumin, Random (w Creat) 12/12/24 E11.9 - Type 2 diabetes mellitus without complications, I10 - Essential (primary) hypertension Referrals General Surgery Referral D17.9 - Benign lipomatous neoplasm, unspecified Medications: New dulaglutide (Trulicity) 0.75 mg (0.5 mL) subcut QWEEK 6 mL 3RF E11.9 - Type 2 diabetes mellitus without complications Coding Level of Care Code Medicare Subsequent (G0439) Diagnoses Medicare annual wellness visit, subsequent Z00.00 Lipoma of other specified sites D17.79 Lipoma location: other site Type 2 diabetes mellitus without complication, without long-term current use of insulin E11.9 Diabetes mellitus type: type 2 Diabetes mellitus intermediate school teacher insulin use: without [place] use Diabetes mellitus complication status: without complication Essential hypertension I10 Hypertension type: essential hypertension
[2024-12-12 15:50] VITALS: BP 124/76; PULSE 75; RESP 14; O2SAT 97; BMI 39.2
--- OUTSIDE RECORDS SUMMARY | 2024-12-12 16:48 | XMS_ITS | Data Portability ---
Author Organization [facility], [facility] Address [address] [place] [address] Care Team Providers Care Client Service Administrator Name Role Phone ISRAEL GONZALEZ Primary Care Provider Assessment Encounter Date Assessment Date Assessment LastModified by Organization Details LastModified Time 04/13/2024 04/13/2024 ICD-10: Bilateral insertional Achilles tendinopathy, traction enthesophytes, Yenny deformities CHIEF COMPLAINT: Bilateral Achilles/posterior heel pain HISTORY OF PRESENT ILLNESS: Yasmin is a very pleasant 68-year-old a woman complaining of long-standing bilateral posterior heel pain due to insertional Achilles tendinopathy. This has been going on for about one year. Her pain is worse on the right side. She had x-rays at [facility]. She has tried Voltaren gel as well as activity modification, stretching and supportive shoes. She has not tried any form of bracing or physical therapy. Her pain level is 2/10. She is here today for more about her options and hopes to avoid surgery if possible. She denies any pain elsewhere. She works in [employer] and previously lived in [place]. Past family, medical, social history and review of systems has been reviewed, updated and is located in the patient s chart. She takes metformin, valsartan and hydrochlorothiazid e. She is a nonsmoker. PHYSICAL EXAM: General: 5'7 , 240 lbs, healthy appearing, in no acute distress Psych: alert and oriented x3, normal mood Skin: intact without ulceration or lesion, normal turgor Lymphatics: no lymphadenopathy Lungs: respirations unlabored Cardiac: heart rate regular, normal peripheral pulses Musculoskeletal: Gait is mildly antalgic. On standing exam, her foot and ankle alignment is normal and symmetric. The patient has some discomfort with single limb heel rise. On seated exam, there is swelling and tenderness over the posterior calcanei at the Achilles insertions. There is prominence due to Yenny deformities and insertional traction enthesophytes. The Achilles is intact with normal Sepulveda test. She has excellent gastrocnemius flexibility bilaterally. There is no plantar fascial origin tenderness or pain with calcaneal squeeze. The patient is distally neurovascularly intact. X-RAYS: Five standing views of the bilateral feet and ankles were ordered, obtained and reviewed by me today at [facility], demonstrating calcification in the distal Achilles tendons near the insertion with a traction enthesophytes and Yenny deformities. IMPRESSION: Bilateral insertional Achilles tendinopathy, traction enthesophytes, Yenny deformities PLAN: I had a long discussion with the patient regarding treatment options. We agree to maximize conservative treatment. I have recommended trial of bilateral Silipos Achilles sleeves along with peel-away heel lifts, supportive shoes and a course of physical therapy focusing on Achilles tendinitis protocol. She will follow up in 8 weeks for reevaluation. If pain worsens, we may consider an MRI for further evaluation. If conservative measures fail, I would recommend insertional Achilles tendon reconstruction and calcaneal exostectomy, one side at a time. I have explained that it can take 6 months for recovery. All questions were answered. Risks include, but are not limited to, wound healing problems, deep infection, persistent pain, stiffness, nerve injury/neuritis, need for further surgery. The expected postoperative course was outlined in detail. The patient understands the nature and magnitude of this surgery. All questions were answered. The patient is ambulatory, but has weakness and/or instability of their extremity which requires stabilization from this semi-rigid/rigid orthosis to improve their function. Verbal and written instructions for the use and application of this item were given. Patient was instructed that should the brace result in increased pain, decreased sensation, increased swelling or an overall worsening of their medical condition, to please contact our office immediately. [email or web address] Not available 04/13/2024 15:33:55 06/09/2024 06/09/2024 ICD-10: Bilateral insertional Achilles tendinopathy, traction enthesophytes, Yenny deformities CHIEF COMPLAINT: Bilateral Achilles/posterior heel pain HISTORY OF PRESENT ILLNESS: Yasmin is a very pleasant 68-year-old a woman seen today in follow-up with regard to bilateral insertional Achilles tendinitis. I first met her 2 months ago. We recall that she has had pain for over 1 year. When I last saw her, her pain was worse on the right side. Today, her pain is somewhat worse on the left. Overall, she has improved significantly since doing 4 weeks of physical therapy and stretching. She has also tried Silipos Achilles sleeves and topical diclofenac gel. She denies any pain today at rest and hopes to avoid surgery. She works in [employer] and previously lived in [place]. Past family, medical, social history and review of systems has been reviewed, updated and is located in the patient s chart. She takes metformin, valsartan and hydrochlorothiazid e. She is a nonsmoker. PHYSICAL EXAM: General: 5'7 , 240 lbs, healthy appearing, in no acute distress Psych: alert and oriented x3, normal mood Skin: intact without ulceration or lesion, normal turgor Lymphatics: no lymphadenopathy Lungs: respirations unlabored Cardiac: heart rate regular, normal peripheral pulses Musculoskeletal: Gait is not antalgic. On standing exam, her foot and ankle alignment is normal and symmetric. She has some discomfort with single limb heel rise. On seated exam, there is mild swelling and tenderness over the posterior calcanei at the Achilles insertions. There is prominence due to Yenny deformities and insertional traction enthesophytes. The Achilles is intact with normal Sepulveda test. She has excellent gastrocnemius flexibility bilaterally. There is no plantar fascial origin tenderness or pain with calcaneal squeeze. The patient is distally neurovascularly intact. X-RAYS: Previous x-ray images were independently reviewed, demonstrating calcification in the distal Achilles tendons near the insertion with a traction enthesophytes and Yenny deformities. IMPRESSION: Bilateral insertional Achilles tendinopathy, traction enthesophytes, Yenny deformities PLAN: I had a long discussion with the patient regarding treatment options and reviewed her x-rays again with her today. She is much better today. She will continue physical therapy and stretching along with efforts to lose weight through dietary modification and low impact exercise. She wishes to follow-up as needed if her pain worsens/recurs. If conservative measures fail, I would recommend insertional Achilles tendon reconstruction and calcaneal exostectomy, one side at a time. I have explained that it can take 6 months for recovery. All questions were answered. [email or web address] Not available 06/09/2024 13:47:07 Plan of Treatment Reminders Order Date Submit Date Provider Last Modified By Organization Details Last Modified Time Details Appointments None recorded. Lab None recorded. Referral physical therapist referral 2024 025 [email or web address] Not available 5 15:09:27 Procedures None recorded. Surgeries None recorded. Imaging XR, ankle, 3 or more view 2024 025 [email or web address] [facility], [address], [place], [address], 5 15:17:16 XR, ankle + foot - rm 107 --NEW 3v foot wb, 2v ankle wb 2024 025 [email or web address] [facility], [address], [place], [address], 5 15:09:27 Medication Orders None recorded. Patient TargetsNo targets recorded. Patient InstructionsNo instructions recorded. Reason for Referral Physical Therapist Referral for Bilateral achilles tendonitis Referring Physician: Blayne Hale, Orthopedic Surgery, Encounter Date: 04/13/2024 Results Created Date Observation Date Name Description Value Unit Range Abnormal Flag Note LastModifiedBy Organization Detail LastModifiedTime 03/30/19 25 03/30/2024 XR, ankle , 3 or more view No observ ation record ed. [email or web address] Not Available 2024 14:17:01 04/13/19 25 04/13/2024 XR, ankle + foot [email or web address] ?Encry pted=s hAaTro YD8dLq bEUv6g %2BXZw aYqtaq 0bqfl% 2Fg9IQ a4ajBk vP9nXo QUaueC m3YtLR FvZlgJ JJ8mAn HZtai3 5r4780 AC0Kqb H%2BEV KSlKiQ trMwF INTERFACE [facility] [address], [place], [address], 04/13/2024 15:19:35 04/13/19 25 04/13/2024 XR, ankle + foot [email or web address] ?Encry pted=s hAaTro YD8dLq bEUv6g %2BXZw aYqtaq 0bqfl% 2Fg9IQ a4ajBk vP9nXo QUaueC m3YtLR FvZlJ J8Turner HZtai3 8g7642 AC0Kqb H%2BEV KSlKiQ trMwF INTERFACE [facility] [address] [facility] [address], [place], [address], 04/13/2024 15:19:37 08/10/19 25 08/09/2024 XR, ankle , 3 or more view [email or web address] ?Encry pted=s hAaTro YD8dLq bEUv6g %2BXZw aYqtaq 0bqfl% 2Fg9IQ a4ajBk vP9nXo QUaueC m3YtLR FvZl JJ8Turner HZtai3 0y3183 AC0Kla 3uBVaq mKiQtr MwF INTERFACE [facility] [address] [address], [place], [address], 08/09/2024 14:45:09 08/10/19 25 08/09/2024 XR, ankle , 3 or more view [email or web address] ?Encry pted=s hAaTro YD8dLq bEUv6g %2BXZw aYqtaq 0bqfl% 2Fg9IQ a4ajBk vP9nXo QUaueC m3YtLR FvZlgJ JJ8mAn HZtai3 7z3393 AC0Kla 3uBVaq mKiQtr MwF INTERFACE [facility] [address] [facility] [address], [place], [address], 08/09/2024 14:45:10 Result Notes Documentation Provider Name and Address Organization Details Recorded Time Xr, Ankle + Foot : [email or web address] Encrypted=eeWvUjpUF6yCyzA Uv6g%6EWUgmWebru2yqab%2Fg 6AMo1gyJoiA7aQiMUbjoWe0Ca VTOgBvcUOO2vCxFIujo27q767 3WV0ZxhH%2BEVKSlKiQtrMwF Not Available [facility] 04/13/2024 15:1 9:36 Xr, Ankle + Foot : [email or web address]? Encrypted=qxJqUlmOG4hDfgI Uv6g%5ERLsnGpjyp1sbtt%2Fg 2MGg7aaBppY7eZjRHkqnJr9Wa HMXgHeyYGL6sMaNMqeb72h796 5LM6DmzN%2BEVKSlKiQtrMwF Not Available [facility] 04/13/2024 15:1 9:38 Xr, Ankle, 3 Or More View : [email or web address] Encrypted=kaJtRamYK5rSoqK Uv6g%3YSJinTklon1rxab%2Fg 2ELy6jiVmxK8uKhAIbbsHl6Pj HLGzAniNTK4tIbPPzhw97k523 8WN1Umz4tFVoyfFpNraBiO Not Available [facility] 08/09/2024 14:45: 10 Xr, Ankle, 3 Or More View : [email or web address] Encrypted=kgHjPehDE2gTwwO Uv6g%4DJKmjDjlla7fhji%2Fg 6TOz0ahGbtA2zRzCNyzhQg8Dl UCKcGmqOGA6eHvBUpdf16i605 5MO8Peb6qIXzikQfQbaJaS Not Available [facility] 08/09/2024 14:45: 11 Problems Name Problem SNOMED Code Status Onset Date Resolution Date Notes Provider Name and Address Organization Details Recorded Time Insertiona l Achilles tendinopat hy 661909142 Active 2024 Blayne Hale MD [address], [place], [address] , [facility] 5 13:47:20 Closed fracture of lateral malleolus 19939826 Active 2024 Trupti Quiñones PA-C [address], [place], [address] , [facility] 5 19:06:28 Bilateral achilles tendonitis 0408094781346 9101 Active 2024 Trupti Quiñones PA-C [address], [place], [address] , [facility] 5 19:06:45 Problem Notes None recorded. Medical Equipment None Reported. Medications Name Sig Start Date Stop Date Status Note LastModified by Organization Details LastModified Time metformin 500 mg tablet TAKE ONE TABLET BY MOUTH TWICE A DAY active Not Available Not Available No t Available FreeStyle Lancets 28 gauge USE 1 LANCET ONCE DAILY active Not Available Not Available No t Available ondansetron HCl 4 mg tablet TAKE ONE TABLET BY MOUTH EVERY 8 HOURS NEEDED FOR NAUSEA AND VOMITING active Not Available Not Available No t Available prednisone 20 mg tablet TAKE TWO TABLETS BY MOUTH 40MG) DAILY active Not Available Not Available No t Available valsartan 160 mg-hydrochlo rothiazide 12.5 mg tablet TAKE ONE TABLET BY MOUTH EVERY DAY active Not Available Not Available No t Available minoxidil 2.5 mg tablet TAKE ONE-HALF TABLET BY MOUTH ONCE DAILY FOR HAIR LOSS. active Not Available Not Available N ot Available hyoscyamine sulfate 0.125 mg tablet TAKE ONE TABLET BY MOUTH 2 TO 4 TIMES A DAY NEEDED FOR DYSPEPSIA active Not Available Not Available No t Available bisacodyl 5 mg tablet,delay ed release TAKE 4 TABLETS ORALLY AT BEDTIME. active Not Available Not Available No t Available peg 3350-electro lytes 236 gram-22.74 gram-6.74 gram-5.86 gram solution DRINK 240 ML BY MOUTH EVERY 10 MINUTES FOR COLONOSCOPY ; PER SPLIT PREP INSTRUCTION S, UNTIL FECAL EFFLUENT IS CLEAR active Not Available Not Available No t Available FreeStyle Lite Meter kit USE DIRECTED active Not Available Not Available No t Available FreeStyle Lite Strips USE 1 TEST STRIP ONCE DAILY active Not Available Not Available No t Available diclofenac 1 % topical gel ADMINISTER 4 GRAMS TOPICALLY FOUR TIMES A DAY. APPLY TO SINGLE KNEE, ANKLE, FOOT, FOR FOOT INCLUDES SOLE/TOES/ AND TOP OF FOOT active Not Available Not Available No t Available Vitals Date Recorded Body weight Provider Name an d Address Organization Details Last Updated DateTime 06/09/2024 303444.17 g ALANIS PINEDA [facility] 06/09/2024 13:35:15 Date Recorded Body weight Provider Name an d Address Organization Details Last Updated DateTime 07/18/2024 456282.17 g FRANCISCO PRAKASH [facility] 07/18/2024 14:43:05 Social History None recorded. Functional Status None recorded. Mental Status None recorded. Family History Nothing Reported. Medical History No medical history recorded. Gynecological HistoryNo gynecological history recorded. Obstetrics History GPAL:G 0 P 0 0 0 0 Past Encounters Encounter ID Performer Location Encounter Start Date Encounter Closed Date Diagnosis/Indication Diagnosis SNOMED-CT Code Diagnosis ICD10 Code Diagnosis IMO Codes Diagnosis Note [id number] MD REUBEN [facility] [address] [place] [address] 04/13/2024 14:56:42 04/25/2024 15:09:27 Ankle pain 594973698 M25.571 M25.572 71321130 Bilateral achilles tendonitis 9081638186 2488287 M76.61 M76.62 09731967 Insertiona l Achilles tendinopathy 318420863 M76.61 M76.62 8065610398 [id number] MD REUBEN Pablo [facility] [address] [place] [address] 06/09/2024 13:18:00 06/26/2024 12:55:33 Insertional Achilles tendinopathy 134632814 M76.61 M76.62 [id number] Trupti Quiñones PA-C [facility] [address] [place] [address] 07/18/2024 14:19:34 07/25/2024 09:06:27 Closed fracture of lateral malleolus 35778819 S82.62XA 70513629 [id number] Trupti Quiñones PA-C [facility] [address] [place] [address] 08/09/2024 14:18:53 08/16/2024 15:17:16 Ankle pain 176679552 M25.572 35190929 Closed fra cture of lateral malleolus 63609543 S82.62XD 17919245 Bilateral achilles tendonitis 6056100631 2006975 M76.61 M76.62 [id number] Health Concerns Section Related Observation LastModified by Organization Detai ls LastModified Time None Recorded Concern Status LastModified by Organization Details LastModified Time None Recorded Advance Directives Directive None Recorded Payers Insurance Date Sequence Insurance Name Policy Number Policy Swann Covered Member ID Swann Member ID Guarantor Name 07/18/2024 [employer]ID[employer] - SPECIALITY CLAIMS (MEDICARE DME REGION A) Yasmin Gideon Velasquez [id number] Yasmin [place] 08/08/2024 1 [place] Yasmin E Eva [id number] Yasmin [place] 08/16/2024 2 [place] [id number] Yasmin E [place] [id number] Yasmin Eva Notes Date Note Type Note Provider Name and Address Organization Details Recorded Time 04/13/2024 text/html ROS as noted in the HPI Blayne Hale MD [address] [facility], [place], [address], [facility] 04/13/2024 15:54:31 06/09/2024 text/html ROS as noted in the HPI Blayne Hale MD [address], [place], [address], [facility] 06/09/2024 14:43:15 07/18/2024 text/html I am seeing this patient under the supervision of Dr. Hale, who was available but who did not see the patient. HPI: Patient is a 68-year-old female presenting today in regards to a left ankle injury sustained on 07/11/24. She rolled her ankle walking on a curb. She had immediate pain. She was seen at urgent care. X-rays showed a distal fibula avulsion fracture. Of note, she was seen here most recently in May for bilateral Achilles tendinitis. Denies any interval trauma. Denies any fevers, chills, or paresthesias. PFMSH, Meds and ROS reviewed, updated and signed by me, and is located in the patient's chart. PHYSICAL EXAMINATION: The patient is well appearing and in no apparent distress. Alert and oriented x 3. Examination of her left ankle reveals mild/moderate edema with no evidence of erythema or warmth. Tender to palpation over the distal fibula. Nontender palpation elsewhere about the foot or ankle. Tolerates ankle sagittal plane range of motion. Calf soft, nontender. Sensation intact light touch in the left lower extremity. RADIOLOGY: X-rays were independently reviewed facility. 3 views of the left ankle reveal small distal fibula avulsion fracture IMPRESSION: Left distal reveal avulsion fracture PLAN: Discussed the findings and situation with the patient today. I recommended continued conservative treatment for this. She may continue with her walking boot. She may weight-bear as tolerated. She was given a prescription for an even up shoe lift. She will follow-up in 3 weeks for recheck and repeat x-rays. Call with questions or concerns The patient is ambulatory, but has weakness and/or instability of their extremity which requires stabilization from this semi-rigid/rigid orthosis to improve their function. Verbal and written instructions for the use and application of this item were given. Patient was instructed that should the brace result in increased pain, decreased sensation, increased swelling or an overall worsening of their medical condition, to please contact our office immediately. Trupti Quiñones PA-C [address], [place], [address], [facility] 07/21/2024 05:33:34 08/09/2024 text/html I am seeing this patient under the supervision of Dr. Hale, who was available but who did not see the patient. HPI: Patient is a 68-year-old female presenting today in regards to a left ankle injury sustained on 07/11/24. She rolled her ankle walking on a curb. She had immediate pain. She was seen at urgent care. X-rays showed a distal fibula avulsion fracture. Of note, she was seen here in May for bilateral Achilles tendinitis. She feels that her ankle since the sprain is doing well in regards to the pain she was having from the sprain and avulsion fracture. She continues to have pain at the Achilles tendon insertion bilaterally, right worse than left. She has tried physical therapy, inserts, boot immobilization, rest, activity modification without much relief. Denies any interval trauma. Denies any fevers, chills, or paresthesias. PFMSH, Meds and ROS reviewed, updated and signed by me, and is located in the patient's chart.PHYSICAL EXAMINATION: The patient is well appearing and in no apparent distress. Alert and oriented x 3. Examination of her left ankle reveals mild edema at the Achilles tendon insertion and some about the anterolateral ankle with no evidence of erythema or warmth. Tender palpation about the Achilles tendon insertion bilaterally. Nontender to palpation over the distal fibula. Nontender palpation elsewhere about the foot or ankle. Good ankle range of motion. Calf soft, nontender. Sensation intact light touch in the left lower extremity. RADIOLOGY: X-rays were with good interval callus formation noted. ordered, obtained, reviewed today in our office. 3 views of the left ankle reveal small distal fibula avulsion fracture with good callus formation. IMPRESSION: Left distal fibula avulsion fracture, doing well, bilateral insertional achilles tendinitis PLAN: Discussed the findings and situation with the patient today. She seems to be doing better in regards to her ankle sprain. She continues to have pain related to insertional Achilles tendinitis. We discussed continued conservative treatment for surgical intervention. Discussed surgery to include calcaneal exostectomy Achilles tendon debridement and reconstruction. Discussed ago postoperative protocols and outcomes. Patient may have a trip coming up in November and may want a wait till after this to have surgery. Happy see her back as needed. If she does wish discussed surgery further she can follow back up with Dr. Hale who she has seen in the past. The patient is ambulatory, but has weakness and/or instability of their extremity which requires stabilization from this semi-rigid/rigid orthosis to improve their function. Verbal and written instructions for the use and application of this item were given. Patient was instructed that should the brace result in increased pain, decreased sensation, increased swelling or an overall worsening of their medical condition, to please contact our office immediately. Trupti Quiñones PA-C [address] [facility] [address], [place], [address], [facility] 08/10/2024 19:06:59 OBGyn Episode No OBEpisode recorded.
== END 2024-12-12 16:16 | disposition home or self-care (01) ==
LOC: HO.HMCFM 15:32
PROVIDERS: PCP Internal Medicine; Visit Provider Internal Medicine
DX: Z00.00 Encounter for general adult medical examination without abnormal findings (principal); D17.79 Benign lipomatous neoplasm of other sites; E11.9 Type 2 diabetes mellitus without complications; I10 Essential (primary) hypertension

== ENCOUNTER 2025-01-17 14:25 | Outpatient (AMB) | payer MEDICARE, SELFPAY ==
[2025-01-17 14:42] VITALS: BMI 39.9
--- NOTE | 2025-01-17 14:42 | A.OFFVIS_ITS ---
Vital Signs 01/17/25 14:42 Height 5 ft 7 in Weight 255 lb BMI 39.9 Intake Visit Reasons: Benign lipomatous neoplasm Intake Note: This patient presents for an assessment for Benign lipomatous neoplasm. 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 Production Mechanic Required: No Accompanied by: Self / Same As Patient Allergies rabies vaccine, human diploid cell Allergy (Unknown, Verified 01/17/25 14:51) sick duck embryo Allergy (Unknown, Uncoded 01/17/25 14:51) makes her sick Medication List - Last Reconciled 01/17/25 by Michael Whitten MD blood sugar diagnostic (FreeStyle Lite Strips) Use 1 test strip once a day blood-glucose meter (OneTouch Ultra2 Meter) As directed blood-glucose meter (FreeStyle Lite Meter kit) As directed cholecalciferol (vitamin D3) . CPAP As directed dulaglutide (Trulicity) 0.75 mg (0.5 mL) subcut QWEEK lancets (OneTouch UltraSoft 2 Lancet) Use 1 lancet once a day lancets (FreeStyle Lancets) Use 1 lancet once a day metformin 500 mg PO BID 90 days minoxidil 5 mg PO DAILY multivitamin 1 tab PO DAILY dqgxdbsr-pobvfqnqn-IW 3.5-10,000-1 mg/mL-unit/mL-% 4 drps otic (ears) TID PRN 10 days valsartan-hydrochlorothiazide 160-12.5 mg 1 tab PO DAILY HPI HPI Benign lipomatous neoplasm: Details: 69-year-old female referred for a lipoma on the back. She says she has had this for many years. However, this has been increasing in size. She says this has been causing more discomfort and she now wants this excised. She denies any swelling or inflammation. She denies any drainage. She is a known diabetic. She says her hemoglobin A1c is 5.1. [facility] Medical History Diabetes Morbid obesity BMI 40.0-44.9, adult SHALONDA on CPAP Hx of obesity Hypertension Surgical History Hx of colonoscopy History of surgery on arm S/P trigger finger release Hx of tonsillectomy Family History Family/Other No problems noted. Mother Lung cancer, Onset Age: 63 Social History Housing: House Alcohol intake: former Patient Tobacco Use Status: Former Tobacco user Tobacco use type: Cigarette e-Cigarette/Vaping Use: Never Used Second Hand Smoke Exposure: No service: No Current occupational status: employed Current occupation: [employer] Current occupational exposures/hazards: Yes Cognitive needs: No Hearing needs: Yes Vision needs: Yes Female Reproductive History Menstrual Age of Menarche: 16 Review of Systems Const Denies chills and Denies fever(s) Card Denies chest pain, Denies dyspnea and Denies dyspnea on exertion Resp Denies cough, Denies dyspnea and Denies dyspnea on exertion GI Denies hematochezia and Denies change in bowel habits Denies hematuria Musc Denies back pain and Denies limited range of motion Neuro Denies focal weakness and Denies convulsions Psych Denies depression and Denies mood swings Physical Exam Vital Signs: BMI result Body Mass Index 39.9 Const General: comfortable and no acute distress Nutritional Appearance: obese Orientation/consciousness: patient oriented x3 Neck Neck: Yes no lymphadenopathy Resp Auscultation: clear to auscultation bilaterally Cardio Rhythm: regular rhythm GI Palpation (GI): Soft to palpation, nontender and no guarding Back/Spine/Pelvis Other: Lipomatous mass on the right upper back, about 8 cm in diameter, well-defined Neuro General: patient oriented x3 Assessment & Plan Assessment & Plan (1) Lipoma of back: Code(s): D17.1 - Benign lipomatous neoplasm of skin and subcutaneous tissue of trunk Category: Medical Plan: She wants to proceed with the excision and she wants this done under anesthesia. She says she does not do well with pain. She understands the technique of excision of this lipoma under anesthesia in the OR. I reviewed with the risks including but not limited to bleeding, infections, poor healing, postop pain, as well as the benefits and alternatives. I explained to her what to expect postoperatively She has given consent Coding Level of Care Code New Pt Level 3 (21251) Diagnoses Lipoma of back D17.1
--- OUTSIDE RECORDS SUMMARY | 2025-01-17 17:34 | XMS_ITS | Data Portability ---
Author Organization [facility] Surgeons [facility], [facility] Address [address] [place] [address] Care Team Providers Care Policy Analyst Name Role Phone ISRAEL GONZALEZ Primary Care [...] the right side. She had x-rays at [facility]. She has tried Voltaren gel as well as activity modification, stretching and supportive shoes. She has not tried any form of bracing or physical therapy. Her pain level is 2/10. She is here today for more about her options and hopes to avoid surgery if possible. She denies any pain elsewhere. She works in [employer] and previously lived in [place]. Past family, medical, social history and review [...] obtained and reviewed by me today at [facility], demonstrating calcification in the distal [...] hopes to avoid surgery. She works in [employer] and previously lived in [place]. Past family, medical, social history and review [...] ankle, 3 or more view 2024 025 [email or web address] [facility] Office, [address], [place], [address], 5 15:17:16 XR, ankle + foot - rm 107 --NEW 3v foot wb, 2v ankle wb 2024 025 [email or web address] [facility], [address], [place], [address], 5 15:09:27 Medication Orders None recorded. Patient TargetsNo targets recorded. Patient InstructionsNo instructions recorded. Reason for Referral Physical Therapist Referral for Tendonitis of bilateral achilles tendons Referring Physician: Blayne Hale, Orthopedic Surgery, Encounter [...] a4ajBk vP9nXo QUaueC m3YtLR FvZlgJ JJ8mAn HZtai3 9w5224 AC0Kqb H%2BEV KSlKiQ trMwF INTERFACE [facility] [address] [facility] [address], [place], [address], 04/13/2024 15:19:35 04/13/19 25 04/13/2024 XR, ankle + foot [email or web address] ?Encry pted=s hAaTro YD8dLq bEUv6g %2BXZw aYqtaq 0bqfl% 2Fg9IQ a4ajBk vP9nXo QUaueC m3YtLR FvZlJ JJ8[place] HZtai3 9a8996 AC0Kqb H%2BEV KSlKiQ trMwF INTERFACE [facility] [address] [facility] [address], [place], [address], 04/13/2024 15:19:37 08/10/19 25 08/09/2024 XR, ankle , 3 or more view [email or web address] ?Encry pted=s hAaTro YD8dLq bEUv6g %2BXZw aYqtaq 0bqfl% 2Fg9IQ a4ajBk vP9nXo QUaueC m3YtLR FvZlJ JJ8[place] HZtai3 1i3799 AC0Kla 3uBVaq mKiQtr MwF INTERFACE [facility] [address] [address], [place], [address], 08/09/2024 14:45:09 08/10/19 25 08/09/2024 XR, ankle , 3 or more view [email or web address] ?Encry pted=s hAaTro YD8dLq bEUv6g %2BXZw aYqtaq 0bqfl% 2Fg9IQ a4ajBk vP9nXo QUaueC m3YtLR FvZlgJ JJ8mAn HZtai3 7n2686 AC0Kla 3uBVaq mKiQtr MwF INTERFACE [facility] [address] [facility] [address], [place], [address], 08/09/2024 14:45:10 Result Notes Documentation Provider Name and Address Organization Details Recorded Time Xr, Ankle + Foot : [email or web address] Encrypted=zwRiJhnFS3vWdpE Uv6g%8RISjpYslwa9znzn%2Fg 1VQu1krNtkK8mCgYKlvrVy4Gi QQNgAjrKZE1pVuLXkps68q958 6OB6AbnM%2BEVKSlKiQtrMwF Not Available [facility] 04/13/2024 15:1 9:36 Xr, Ankle + Foot : [email or web address] Encrypted=yoTvWlbHI7uIjwG Uv6g%5YHEzrLdbov5zlzj%2Fg 4CYa0ewXadS4kIeHPaqhPn6Pn OJTdUghRFE3pNfIIrax04m244 4CP4DdfK%2BEVKSlKiQtrMwF Not Available [facility] 04/13/2024 15:1 9:38 Xr, Ankle, 3 Or More View : [email or web address] Encrypted=ouEvAyjAH1eMswY Uv6g%3AHSqyJzzqy9utxh%2Fg 9MIy3cwMgwY7qWsDOmcpZs3Ka NYYkXviTNB6mGnFDcmo97v263 7ZA2Xei6mHWdwfVyPvpJyV Not Available [facility] 08/09/2024 14:45: 10 Xr, Ankle, 3 Or More View : [email or web address] Encrypted=blKcUyqGT8wHjpE Uv6g%0LTTgwFbqth9paho%2Fg 5CBz6hiEqxE4mMbJBfpdAa3Of QESnBaiWRY2wLoJHfni94p012 3SA2Rsg2wRGmapTrDnoMrE Not Available [facility] 08/09/2024 14:45: 11 Problems Name Problem SNOMED Code Status Onset Date Resolution Date Notes Provider Name and Address Organization Details Recorded Time Insertiona l Achilles tendinopat hy 247986363 Active 2024 Blayne Hale MD [address], [place], [address] , [facility] 5 13:47:20 Closed fracture of lateral malleolus 97631954 Active 2024 Trupti Quiñones PA-C [address], [place], [address] , [facility] 5 19:06:28 Tendonitis of bilateral achilles tendons 2074009983993 9101 Active 2024 Trupti Quiñones PA-C [address], [place], [address] , [facility] 5 19:06:45 Problem [...] Address Organization Details Last Updated DateTime 06/09/2024 100986.17 g ALANIS PINEDA [facility] 06/09/2024 13:35:15 Date Recorded Body weight Provider Name an d Address Organization Details Last Updated DateTime 07/18/2024 102199.17 g [facility] 07/18/2024 14:43:05 Social History [...] ICD10 Code Diagnosis IMO Codes Diagnosis Note [id number] MD REUBEN Pablo [address] [facility] [address] [place] [address] 04/13/2024 14:56:42 04/25/2024 15:09:27 Ankle pain 095861290 M25.571 M25.572 83716399 Tendonitis of bilateral achilles tendons 7963645987 3963042 M76.61 M76.62 91939916 Insertiona l Achilles tendinopathy 818226674 M76.61 M76.62 [id number] MD REUBEN Pablo [address] [facility] [address] [place] [address] 06/09/2024 13:18:00 06/26/2024 12:55:33 Insertional Achilles tendinopathy 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 M76.61 M76.62 [id number] ERICKSON DoyleA - [facility] [place] [address] 07/18/2024 14:19:34 07/25/2024 09:06:27 Closed fracture of lateral malleolus 29931856 S82.62XA 69490423 [id number] ERICKSON Doyle - [address] [place] [address] 08/09/2024 14:18:53 08/16/2024 15:17:16 Ankle pain 574082373 M25.572 [id number] Closed fra cture of lateral malleolus 96982237 S82.62XD 17928731 Tendonitis of bilateral achilles tendons 9270021879 0436851 M76.61 M76.62 [id number] Health Concerns Section Related Observation LastModified by Organization Detai ls LastModified Time None Recorded Concern Status LastModified by Organization Details LastModified Time None Recorded Advance Directives Directive None Recorded Payers Insurance Date Sequence Insurance Name Policy Number Policy Swann Covered Member ID Swann Member ID Guarantor Name 07/18/2024 NORIDIAN - SPECIALITY CLAIMS (MEDICARE DME REGION A) Yasmin Gideon Velasquez [id number] 0 Yasmin [place] 08/08/2024 1 [place] Yasmin E Lansing [id number] Yasmin Eva 08/16/2024 2 [place] [id number] Yasmin E Eva [id number] Yasmin [place] Notes Date Note Type Note Provider Name and Address Organization Details Recorded Time 04/13/2024 text/html ROS as noted in the HPI Blayne Hale MD [address] [facility], [place], [address], [facility] 04/13/2024 15:54:31 06/09/2024 text/html ROS as noted in the [facility] Blayne Hale MD [address], [place], [address], [facility] 06/09/2024 14:43:15 07/18/2024 [...] our office immediately. Trupti Quiñones PA-C [address], [place], [address], [facility] 07/21/2024 05:33:34 08/09/2024 text/html I am seeing [...] she can follow back up with Dr. Lareau who she has seen in the past. [...] our office immediately. Trupti Quiñones PA-C [address] [facility] [address], [place], [address], [facility] [place] [facility] 08/10/2024 19:06:59 OBGyn Episode No OBEpisode recorded.
== END 2025-01-17 15:10 | disposition home or self-care (01) ==
LOC: HO.HGS 14:25
PROVIDERS: PCP Internal Medicine; Visit Provider Surgery
DX: D17.1 Benign lipomatous neoplasm of skin and subcutaneous tissue of trunk (principal)
CPT/HCPCS: 99203

== ENCOUNTER → 2025-01-17 14:25 | Outpatient (BNVA) | payer MEDICARE, SELFPAY | PROVIDERS: PCP Internal Medicine; Visit Provider Surgery | DX: D17.1 Benign lipomatous neoplasm of skin and subcutaneous tissue of trunk (principal); E66.01 Morbid (severe) obesity due to excess calories; Z68.41 Body mass index [BMI] 40.0-44.9, adult | CPT/HCPCS: 99202 ==

== ENCOUNTER 2025-02-20 07:52 | Day surgery (SDC) | payer MEDICARE, SELFPAY ==
--- OUTSIDE RECORDS SUMMARY | 2025-01-31 04:24 | XMS_ITS | Data Portability ---
Author Organization [facility]geons [facility], [facility] Address [address] [place] [address] Care Team Providers Care Preschool Special Education Teacher Name Role Phone ISRAEL GONZALEZ Primary Care Provider [phone] Assessment Encounter Date Assessment Date Assessment LastModified [...] the right side. She had x-rays at [facility]. She has tried Voltaren gel as well as activity modification, stretching and supportive shoes. She has not tried any form of bracing or physical therapy. Her pain level is 2/10. She is here today for more about her options and hopes to avoid surgery if possible. She denies any pain elsewhere. She works in [employer] and previously lived in [place]. Past family, medical, social history and review [...] obtained and reviewed by me today at [facility], demonstrating calcification in the distal Achilles tendons [...] hopes to avoid surgery. She works in [employer] and previously lived in [place]. Past family, medical, social history and review [...] ankle, 3 or more view [email or web address] [facility] Office, [address], [place], [address], 5 15:17:16 XR, ankle + foot - rm 107 --NEW 3v foot wb, 2v ankle wb [email or web address] [facility] Office, [address], [place], [address], 5 15:09:27 Medication Orders None recorded. Patient [...] a4ajBk vP9nXo QUaueC m3YtLR FvZlgJ JJ8mAn HZtai3 5u2974 AC0Kqb H%2BEV KSlKiQ trMwF INTERFACE [facility] [address] [facility] [address], [place], [address], 04/13/2024 15:19:35 04/13/19 25 04/13/2024 XR, ankle + foot [email or web address] ?Encry pted=s hAaTro YD8dLq bEUv6g %2BXZw aYqtaq 0bqfl% 2Fg9IQ a4ajBk vP9nXo QUaueC m3YtLR FvZlJ JJ[place] HZtai3 4a3161 AC0Kqb H%2BEV KSlKiQ trMwF INTERFACE [facility] [address] [facility] [address], [place], [address], 04/13/2024 15:19:37 08/10/19 25 08/09/2024 XR, ankle , 3 or more view [email or web address] ?Encry pted=s hAaTro YD8dLq bEUv6g %2BXZw aYqtaq 0bqfl% 2Fg9IQ a4ajBk vP9nXo QUaueC m3YtLR FvZlJ JJ[place] HZtai3 0w7066 AC0Kla 3uBVaq mKiQtr MwF INTERFACE [facility] [address] [address], [place], [address], 08/09/2024 14:45:09 08/10/19 25 08/09/2024 XR, ankle , 3 or more view [email or web address] ?Encry pted=s hAaTro YD8dLq bEUv6g %2BXZw aYqtaq 0bqfl% 2Fg9IQ a4ajBk vP9nXo QUaueC m3YtLR FvZlgJ JJ8mAn HZtai3 2y9980 AC0Kla 3uBVaq mKiQtr MwF INTERFACE [facility] [address] [facility] [address], [place], [address], 08/09/2024 14:45:10 Result Notes Documentation Provider Name and Address Organization Details Recorded Time Xr, Ankle + Foot : [email or web address] Encrypted=btQlJlzWW3nNzaU Uv6g%3GVDxnWcsfw4sbyk%2Fg 5VLs2asVncO4pJxZLhlbDv9Jd MDZfSvjWPP5cJzEUtup03v373 0VL3WmtE%2BEVKSlKiQtrMwF Not Available [facility] 04/13/2024 15:1 9:36 Xr, Ankle + Foot : [email or web address] Encrypted=soAvBexAE5vBiiD Uv6g%3UANcmOiddx9aedv%2Fg 8YAm4qwPlhN8iWbZXcgeWb6Gz YZIiZolXFN1cLvTAkgh85d141 5JD0TwyO%2BEVKSlKiQtrMwF Not Available [facility] 04/13/2024 15:1 9:38 Xr, Ankle, 3 Or More View : [email or web address] Encrypted=bzApAuvMP2zRdoT Uv6g%0BPHlqVqyeb7zzvu%2Fg 5SRy4clUfaI0sUgMPdwzEq8Jz FAYqDeyJNH7tApXVdpr74k535 3SY0Dtk4fVNqkpYqQttQkN Not Available [facility] 08/09/2024 14:45: 10 Xr, Ankle, 3 Or More View : [email or web address] Encrypted=npDdJqiHG0sGdrW Uv6g%6YGZhoXouch8whme%2Fg 6ZVx7jwPjfJ1vBvHIvmdAn8Vy ZAXvAezAKC2vDbHTjyx64d593 5YE3Sop1zLZkxdHuKpfNqG Not Available [facility] 08/09/2024 14:45: 11 Problems Name Problem SNOMED Code Status Onset Date Resolution Date Notes Provider Name and Address Organization Details Recorded Time Insertiona l Achilles tendinopat hy 021869399 Active 2024 Blayne Hale MD [address], [place], [address] , [facility] 5 13:47:20 Closed fracture of lateral malleolus 71587242 Active 2024 Trupti Quiñones PA-C [address], [place], [address] , [facility] 5 19:06:28 Tendonitis of bilateral achilles tendons 5872708605325 9101 Active 2024 Trupti Quiñones PA-C [address], [place], [address] , [facility] 5 19:06:45 Problem Notes [...] Address Organization Details Last Updated DateTime 06/09/2024 332783.17 g ALANIS PINEDA [facility] 06/09/2024 13:35:15 Date Recorded Body weight Provider Name an d Address Organization Details Last Updated DateTime 07/18/2024 059847.17 g [facility] 07/18/2024 14:43:05 Social History [...] ICD10 Code Diagnosis IMO Codes Diagnosis Note [id number] MD REUBEN Pablo [address] [facility] [address] [place] [address] 04/13/2024 14:56:42 04/25/2024 15:09:27 Ankle pain 303648404 M25.571 M25.572 46931740 Tendonitis of bilateral achilles tendons 8495406023 1753104 M76.61 M76.62 45307026 Insertiona l Achilles tendinopathy 478278399 M76.61 M76.62 [id number] MD REUBEN Pablo [facility] [address] [place] [address] 06/09/2024 13:18:00 06/26/2024 12:55:33 Insertional Achilles tendinopathy 931198137 M76.61 M76.62 [id number] ERICKSON DoyleA - [facility] [address] [place] [address] 07/18/2024 14:19:34 07/25/2024 09:06:27 Closed fracture of lateral malleolus 08502549 S82.62XA 03378901 [id number] ERICKSON Doyle - [address] [place] [address] 08/09/2024 14:18:53 08/16/2024 15:17:16 Ankle pain 689336275 M25.572 [id number] Closed fra cture of lateral malleolus 05859887 S82.62XD 69246199 Tendonitis of bilateral achilles tendons 1043682617 7202956 M76.61 M76.62 [id number] Health Concerns Section Related Observation LastModified by Organization Detai ls LastModified Time None Recorded Concern Status LastModified by Organization Details LastModified Time None Recorded Advance Directives Directive None Recorded Payers Insurance Date Sequence Insurance Name Policy Number Policy Swann Covered Member ID Swann Member ID Guarantor Name 07/18/2024 NORIDIAN - SPECIALITY CLAIMS (MEDICARE DME REGION A) Yasmin Gideon Velasquez [id number] 0 Yasmin Eva 08/08/2024 1 [place] Yasmin E Patillas [id number] Yasmin [place] 08/16/2024 2 [place]) [id number] Yasmin E Patillas [id number] Yasmin Eva Notes Date Note Type Note Provider Name and Address Organization Details Recorded Time 04/13/2024 text/html ROS as noted in the HPI Blayne Hale MD [address] [facility], [place], [address], [facility] 04/13/2024 15:54:31 06/09/2024 text/html ROS as noted in the [facility] Blayne Hale MD [address], [place], [address], [facility] 06/09/2024 14:43:15 07/18/2024 text/html [...] Quiñones PA-C [address], [place], [address], [facility] [place] [facility] 07/21/2024 05:33:34 08/09/2024 text/html [...] our office immediately. Trupti Quiñones PA-C [address] [facility] [address], [place], [address], [facility] [place] [facility] 08/10/2024 19:06:59 OBGyn Episode No OBEpisode recorded.
--- NOTE | 2025-02-16 09:41 | HO.ANESPROP2 ---
Documented by User: Lena Jang NP 02/23/25 12:59 HPI - Anesthesia Eval Consult details Narrative: 69yo F for Excision Large Lipoma of Back Anesthesia Pre-Procedure Meds Is the patient on any of the following meds?: GLP1/DPP4 PMFSH Active Problems Active Problems: All Active Problems Diverticulosis (Acute) Encounter for hepatitis C screening test for low risk patient (Acute) Positive colorectal cancer screening using Cologuard test (Acute) Screening for hyperlipidemia (Acute) Achilles tendonitis, bilateral (Acute) Encounter for Medicare annual wellness exam (Acute) Screen for colon cancer (Acute) Diabetes mellitus (Acute) Thinning hair (Acute) Situational anxiety (Acute) Normal physical exam (Acute) Trigger finger, right middle finger (Acute) Trigger finger, right ring finger (Acute) Hearing reduced (Acute) Lipoma of back (Acute) Lipoma (Acute) BMI 39.0-39.9,adult (Acute) Well woman exam with routine gynecological exam (Acute) Hypertension (Acute) Trigger finger, right (Acute) SHALONDA on CPAP (Acute) Past Medical History Medical History Diabetes Morbid obesity BMI 40.0-44.9, adult SHALONDA on CPAP Hx of obesity Hypertension Family History Family History Family/Other No problems noted. Mother Lung cancer, Onset Age: 63 Family history of problems with anesthesia: No Surgical History Surgical History Hx of colonoscopy History of surgery on arm S/P trigger finger release Hx of tonsillectomy History of Problems with Anesthesia: No Social History Social History Housing: House Alcohol intake: former Patient Tobacco Use Status: Former Tobacco user Tobacco use type: Cigarette e-Cigarette/Vaping Use: Never Used Second Hand Smoke Exposure: No Use of substances other than those prescribed or required for medical reasons: No Advance Directives: No Advance Directives Information Provided: Yes service: No Current occupational status: employed Current occupation: [employer] Current occupational exposures/hazards: Yes Cognitive needs: No Hearing needs: Yes Vision needs: Yes Meds Allergies Allergy/AdvReac Type Severity Reaction Status Date / Time rabies vaccine, human Allergy Unknown sick Verified 02/20/25 08:09 diploid cell duck embryo Allergy Unknown makes her Uncoded 02/20/25 08:09 sick Home Medications ?Medication ?Instructions ?Recorded ?Confirmed ?Last Taken ?Type minoxidil 10 mg tablet 5 mg PO DAILY 06/22/23 02/20/25 02/19/25 History cholecalciferol (vitamin D3) PO 12/31/23 01/17/25 Unknown History multivitamin 1 tab PO DAILY 12/31/23 02/20/25 Unknown History Assessment and Plan Assessment Anesthesia Assessment: Chart Reviewed Final Anesthetic Review Family History of Problems with Anesthesia: No History of Problems with Anesthesia: No Documented by User: Kvng Kidd MD 02/27/25 16:35 [facility] Past Medical History Medical History Diabetes Morbid obesity BMI 40.0-44.9, adult SHALONDA on CPAP Hx of obesity Hypertension Family History Family History Family/Other No problems noted. Mother Lung cancer, Onset Age: 63 Surgical History Surgical History Hx of colonoscopy History of surgery on arm S/P trigger finger release Hx of tonsillectomy Social History Social History Housing: House Alcohol intake: former Patient Tobacco Use Status: Former Tobacco user Tobacco use type: Cigarette e-Cigarette/Vaping Use: Never Used Second Hand Smoke Exposure: No Use of substances other than those prescribed or required for medical reasons: No Advance Directives: No Advance Directives Information Provided: Yes service: No Current occupational status: employed Current occupation: [employer] Current occupational exposures/hazards: Yes Cognitive needs: No Hearing needs: Yes Vision needs: Yes Meds Allergies Allergy/AdvReac Type Severity Reaction Status Date / Time rabies vaccine, human Allergy Unknown sick Verified 02/20/25 08:09 diploid cell duck embryo Allergy Unknown makes her Uncoded 02/20/25 08:09 sick Home Medications ?Medication ?Instructions ?Recorded ?Confirmed ?Last Taken ?Type minoxidil 10 mg tablet 5 mg PO DAILY 06/22/23 02/20/25 02/19/25 History cholecalciferol (vitamin D3) PO 12/31/23 01/17/25 Unknown History multivitamin 1 tab PO DAILY 12/31/23 02/20/25 Unknown History Assessment and Plan Assessment Anesthesia Assessment: Anesthesia Plan Discussed Final Anesthetic Review NPO: Yes ASA Class: III Final Preanesthetic Review: No Changes in Pt Med Stat, Meds/Allgs Chart Reviewed and Consent Obtained/Reviewed Patient Risk: Intermediate Procedure Risk: Low Anesthetic Plan Anesthetic Plan: MAC: Disposition: Standard PACU
[2025-02-16 11:44] VITALS: BMI 39.9
[2025-02-20 08:10] LABS: Glucose, Whole Blood 138 mg/dL (60-115)
[2025-02-20 08:13] VITALS: BMI 39.2
[2025-02-20 08:16] VITALS: BP 155/70; PULSE 72; RESP 18; TEMP 36.3; O2SAT 95
[2025-02-20] MEDS: Lactated Ringers 1,000 ML 100 ML IVCONT (08:28)
--- NOTE | 2025-02-20 09:45 | MHC.SHP ---
Pre-Procedural Eval Section A - 24 Hr Update-Section A only Date of Service: 02/20/25 Section B - Complete if H&P > 30 days Chief Complaint: Benign lipomatous neoplasm of skin and subcut Details of Present Illness: Has a large lipoma on the upper back in the right Relevant Social History: None Present Medications: see Short Stay Collaborative assessment Medical History: Significant History (Anxiety, obesity, sleep apnea on CPAP, hypertension) Allergies: Allergies Allergy/AdvReac Type Severity Reaction Status Date / Time rabies vaccine, human Allergy Unknown sick Verified 02/20/25 08:09 diploid cell duck embryo Allergy Unknown makes her Uncoded 02/20/25 08:09 sick Review of Systems Sugical H&P ROS: Negative: Constitution, Cardiovascular and Gastrointestinal and Yes, Specify: Respiratory (Uses the CPAP at night) Exam Surgical H&P Exam: Normal: Heart, Normal: Lungs and Normal: Abdomen Exam Comment: Large lipoma on the back to upper right side Plan Diagnosis/Plan: Unchanged I have reviewed the history and physical and performed a pertinent physical examination on my patient. No changes have occurred unless specified. Time Spent With Patient Time: Total time managing care of this patient today ____ minutes.
--- NOTE | 2025-02-20 10:40 | P.OP_ITS ---
Operative Note Operative Note Date of Service: 02/20/25 Narrative: Preop diagnosis: Large lipoma, upper back Postop diagnosis: The same Procedure: Excision of a large lipoma from the upper back under monitored anesthesia care Surgeon: Michael Whitten MD assistant program manager: YULISA Rizvi The patient is a 63 year female with note of a large lipoma on the upper back. She wanted to proceed with the excision. She understood the technique of the planned procedure as well as the risks, benefits, and alternatives. She was brought to the operating room. She was placed in sloppy left lateral decubitus position under monitored anesthesia care. The area of the large lipo ma on the upper back on the right side was prepped and draped. Lidocaine 1% was used for local anesthesia. I made an incision in the skin firstly overlying the lipoma with a blade 15. This carried down with electrocautery through the full- thickness of the skin and subcutaneous fat until I was able to visualize the lipoma. I sharply dissected the lipoma off of the rest of the subcutaneous layer using combination of Metzenbaum scissors as well as electrocautery. I dissected posteriorly as well to separate this from the deep layers and the fascia. We circumferentially dissected until the lipoma was delivered The lipoma measured about 8 by 6 cm. I then irrigated the excision site. I cauterized oozing areas. Once hemostasis was confirmed, I reapposed deep subcutaneous layer with Polysorb 3-0 simple interrupted sutures. Skin closure was achieved with Polysorb 4-0 subcuticular running sutures. The area was infiltrated with Marcaine 0.5% for postop analgesia Dressings were applied. The procedure was completed. The patient tolerated the procedure well. There were no immediate complications. Initial and final counts of sponges and instruments were correct. Estimated blood loss was less than 25 cc. The patient was awakened and transferred to the recovery room with stable vital signs.
[2025-02-20 10:51] VITALS: BP 106/56; PULSE 68; RESP 18; TEMP 34.4; O2SAT 96
[2025-02-20 10:55] VITALS: BP 134/73; PULSE 68; RESP 18; TEMP 36.1; O2SAT 96
[2025-02-20 11:00] VITALS: BP 135/74; PULSE 68; RESP 18; O2SAT 97
[2025-02-20 11:05] VITALS: BP 135/72; PULSE 66; RESP 18; O2SAT 97
[2025-02-20 11:15] VITALS: BP 127/72; PULSE 65; RESP 18; TEMP 36.4; O2SAT 98
== END 2025-02-20 11:35 | disposition home or self-care (01) ==
PROVIDERS: PCP Internal Medicine; Visit Provider Surgery
PROC: (CPT 21931; principal; 2025-02-20 10:10)
DX: D17.1 Benign lipomatous neoplasm of skin and subcutaneous tissue of trunk (principal); E11.9 Type 2 diabetes mellitus without complications; I10 Essential (primary) hypertension; G47.33 Obstructive sleep apnea (adult) (pediatric); Z79.84 Long term (current) use of oral hypoglycemic drugs; Z79.85 Long-term (current) use of injectable non-insulin antidiabetic drugs; Z99.89 Dependence on other enabling machines and devices; Z79.899 Other long term (current) drug therapy; E66.01 Morbid (severe) obesity due to excess calories; Z68.41 Body mass index [BMI] 40.0-44.9, adult; Z88.7 Allergy status to serum and vaccine; Z91.018 Allergy to other foods; Z98.890 Other specified postprocedural states; Z87.891 Personal history of nicotine dependence
CPT/HCPCS: 21931; 82947; 88304; J0690; J2003; J2704; J2795; J3010

== ENCOUNTER → 2025-02-20 07:52 | Outpatient (BNV) | payer MEDICARE, SELFPAY | PROVIDERS: PCP Internal Medicine; Visit Provider Surgery | DX: D17.1 Benign lipomatous neoplasm of skin and subcutaneous tissue of trunk (principal) | CPT/HCPCS: 11406 ==